=== PATIENT | female | born 1945 | race Caucasian/White ===

== ENCOUNTER 2016-05-23 03:38 | Emergency (ER) | payer OTHER ==
[~2016-05-23] VITALS: Ht 154.9 cm; Wt 110.0 kg
[~2016-05-23 03:38] MED LIST: ADVAIR HFA120 INHALA IH; AMBIEN10 MG PO; AMBIEN5 MG PO; ASPIR-LOW81 MG PO; ATARAX,VISTARIL50 MG PO; ATIVAN2 MG/ML PO; Advair HFA 115/21 IH; BENTYL20 MG PO; CEFTIN500 MG PO; CENTRUM TABLET1 EACH PO; CLONAZEPAM0.5 MG PO; COBAL-10001000 MCG/2 IM; COGENTIN0.5 MG PO; COLACE100 MG PO; COUMADIN3 MG PO; COUMADIN4 MG PO; DELTASONE10 MG PO; DESYREL100 MG PO; DESYREL12.5 MG PO; DICYCLOMINE HCL10 MG PO; DUONEB3 ML IH; EFFEXOR XR150 MG PO; ELAVIL25 MG PO; Effexor PO; Effexor XR PO; Elavil PO; FLONASE16 G1 BOTH NARES; FLONASE16 GM NS; FUROSEMIDE20 MG PO; Flonase NS; GEODON60 MG PO; GEODON80 MG PO; GLIPIZIDE PO; GLUCOPHAGE PO; GLUCOPHAGE500 MG PO; HYDROCHLOROTH12.5 M3 PO; HYZAAR 50-121 TABLET PO; IMDUR30 MG PO; INCRUSE ELLI62.5 MCG IH; ISOSORBIDE DINI30 MG PO; ISOSORBIDE MONO30 MG PO; ISOSORBIDE MONO60 MG PO; KEFLEX500 MG PO; KLONOPIN0.5 M1 PO; KLONOPIN2 MG PO; LACTINEX CHEWA1 EACH PO; LACTINEX,FLO1 PACKET PO; LANTUS (UNITS)1 UNIT SC; LANTUS 10100 UNITS/ SC; LANTUS 3 M100 UNITS/ SC; LANTUS 3 M100 UNITS1 SC; LANTUS100 UNIT/1 SQ; LASIX20 MG PO; LASIX40 MG PO; LEVAQUIN250 MG PO; LEVEMIR FL100 UNIT/1 SC; LEVEMIR100 UNIT/2 SC; LEVOFLOXACIN750 MG PO; LISINOPRIL-HCT1 EAC3 PO; LISINOPRIL20 MG PO; LISINOPRIL5 MG PO; LOSARTAN-HCTZ1 EACH PO; LUNESTA2 MG PO; LYRICA50 MG PO; LYRICA75 MG PO; Lactinex,Floranex PO; MEDROL DOSEPAK4 MG PO; METFORMIN HCL500 MG PO; METOPROLOL SUCC50 MG PO; METOPROLOL TART50 MG PO; MONOPRIL PO; MULTIVITAMIN1 EAC2 PO; MULTIVITAMINS1 EAC2 PO; NEXIUM40 MG PO; NORCO 5/3251 TABLET PO; NORVASC10 MG PO; NORVASC2.5 MG PO; NOVOLOG 10100 UNITS/ SC; NOVOLOG PE100 UNITS/ SC; NOVOLOG100 UNIT/1 SQ; NOVOLOG100 UNIT/3 SQ; NYSTATIN100000 UN1 PO; NYSTATIN15 GM TP; OMEPRAZOLE20 MG PO; PHARMACIST FAV1 EACH PO; PRAVASTATIN SOD80 MG PO; PREDNISONE10 MG PO; PRILOSEC20 MG PO; PRILOSEC40 MG PO; PRINIVIL20 MG PO; PRINZIDE 20-121 EACH PO; PROTONIX40 MG PO; PROVENTIL,2.5 MG/3 M IH; PROVENTIL2.5 MG/3 M IH; PriLOSEC PO; RANITIDINE HCL150 MG PO; SENNA8.6 MG PO; SERTRALINE HCL100 MG PO; SERTRALINE HCL50 MG PO; SPIRIVA RESPIMAT4 GM IH; SPIRIVA1 INHALATI IH; Senokot,Sennagen PO; THERAGRAN1 TABLET PO; TOPROL XL50 MG PO; TOPROL XL6.25 MG PO; TRAMADOL HCL50 MG PO; TYLENOL PM1 CAPLET PO; Toprol XL PO; Tylenol Regular Stre PO; ULTRAM50 MG PO; VENLAFAXINE HC150 M1 PO; VENTOLIN HFA18 GM IH; VITAMIN B-122000 MC1 PO; VITAMIN B12-FO1 EACH PO; VITAMIN D2000 INTUN PO; VITAMIN D2000 UNIT PO; VOLTAREN 1% GE100 GM TP; WARFARIN SODIUM2 MG PO; WARFARIN SODIUM3 MG PO; WARFARIN SODIUM4 MG PO; XANAX1 MG PO; Xanax PO; ZANTAC150 MG PO; ZESTRIL,PRINIVI20 MG PO; ZIPRASIDONE HCL60 MG PO; ZITHROMAX Z-PA250 MG PO; ZITHROMAX250 MG PO; ZOCOR20 MG PO; ZOFRAN4 MG PO; ZOLOFT50 MG PO; Zestril,Prinivil PO; [UNRECOGNIZED DRUG - REMARK] PO; predniSONE PO
[2016-05-23 04:39] LABS: MCH 28.5 PG (29.0-34.0); MCHC 34.1 G/DL (30.0-36.0); MCV 83.5 FL (83-99); MEAN PLAT.VOLUME 12.3 uM^3 (9.5-12.4); PLATELET COUNT 189 K/uL (156-360); RBC DIS.WIDTH-SD 38.9 % (39-53); RED BLOOD COUNT 4.67 M/uL (3.80-5.20); WHITE BLOOD COUNT 6.9 K/uL (4.1-10.2)
[2016-05-23 04:49] LABS: CHLORIDE 92 mEq/L (99-109); POTASSIUM 3.9 mEq/L (3.7-5.4); SODIUM 128 mEq/L (136-147)
[2016-05-23 04:52] LABS: ANION GAP 12 MEQ/L (2-14)
[2016-05-23 04:54] LABS: GFR ESTIMATE (CALCULATED) 36 mL/min/
[2016-05-23 04:55] LABS: UREA NITROGEN (BUN) 23 mg/dL (9-23)
[2016-05-23 04:58] LABS: GLUCOSE 572 mg/dL (70-99)
[2016-05-23 08:15] VITALS: BP 178/86
[2016-05-23 12:41] LABS: POINT-OF-CARE METER ID UU14100415
== END 2016-05-23 08:23 | disposition home or self-care (01) ==
LOC: EME → EDBD 03:38 → EME 03:38
PROVIDERS: Emergency Medicine
DX: E11.65 Type 2 diabetes mellitus with hyperglycemia (principal); M54.9 Dorsalgia, unspecified; I10 Essential (primary) hypertension; W19.XXXA Unspecified fall, initial encounter; Z99.81 Dependence on supplemental oxygen; Z86.73 Personal history of transient ischemic attack (TIA), and cerebral infarction without residual deficits; Z88.6 Allergy status to analgesic agent
CPT/HCPCS: 70450; 72125; 72131; 74176; 80048; 82948; 85027; 99281; 99285; J2270; J2405; J7030

== ENCOUNTER 2016-06-23 12:01 | Emergency (ER) | payer OTHER ==
[~2016-06-23] VITALS: Ht 154.9 cm; Wt 100.0 kg
[2016-06-23 12:44] LABS: HEMATOCRIT 41.8 % (36.0-46.0); MCH 28.7 PG (29.0-34.0); MCHC 32.8 G/DL (30.0-36.0); MCV 87.4 FL (83-99); MEAN PLAT.VOLUME 12.2 uM^3 (9.5-12.4); PLATELET COUNT 181 K/uL (156-360); RBC DIS.WIDTH-CV 12.6 % (11.8-14.6); RED BLOOD COUNT 4.78 M/uL (3.80-5.20); WHITE BLOOD COUNT 6.2 K/uL (4.1-10.2)
[2016-06-23 12:46] LABS: CARBON DIOXIDE (BICARBONATE) 31.3 MEQ/L (20-31)
[2016-06-23 12:53] LABS: CHLORIDE 101 mEq/L (99-109); POTASSIUM 4.3 mEq/L (3.7-5.4); SODIUM 136 mEq/L (136-147)
[2016-06-23 12:55] LABS: GLUCOSE 431 mg/dL (70-99)
[2016-06-23 12:56] LABS: ANION GAP 10 MEQ/L (2-14)
[2016-06-23 12:57] LABS: TOTAL BILIRUBIN 0.3 mg/dL (0.0-1.0)
[2016-06-23 12:58] LABS: ALKALINE PHOSPHATASE 86 IU/L (3-129)
[2016-06-23 12:59] LABS: GFR ESTIMATE (CALCULATED) 47 mL/min/
[2016-06-23 13:00] LABS: UREA NITROGEN (BUN) 17 mg/dL (9-23)
[2016-06-23 13:07] LABS: TROP-I INTERPRETATION NEGATIVE; TROPONIN-I 0.02 ng/mL (0.0-0.30)
[2016-06-23 14:11] LABS: PROTHROMBIN TIME 14.9 (9.2-11.2); PTT 29.3 (25-32)
[2016-06-23 14:16] LABS: ADD MIUA? NO; BILIRUBIN NEGATIVE; BLOOD NEGATIVE; COLOR STRAW ((YELLOW)); GLUCOSE (STRIP) >=500; KETONES 5; LEUKOCYTES NEGATIVE; NITRITE NEGATIVE; PROTEIN (STRIP) NEGATIVE; SPECIFIC GRAVITY 1.035 (1.000-1.030); UROBILINOGEN 0.2 MG/DL (0.2-1.0)
[2016-06-23 14:18] LABS: INTER. NORMALIZED RATIO 1.4
[2016-06-23 15:03] LABS: POINT-OF-CARE METER ID UU13113702
[2016-06-23 16:00] VITALS: BP 170/74
[2016-06-23 16:04] LABS: POINT-OF-CARE METER ID UU13113702
== END 2016-06-23 16:02 | disposition home or self-care (01) ==
LOC: EME → EDBD 12:01 → EME 12:01
PROVIDERS: Physician Assistant Medical
DX: E11.65 Type 2 diabetes mellitus with hyperglycemia (principal); J44.9 Chronic obstructive pulmonary disease, unspecified; I10 Essential (primary) hypertension; K21.9 Gastro-esophageal reflux disease without esophagitis; Z86.73 Personal history of transient ischemic attack (TIA), and cerebral infarction without residual deficits; Z86.718 Personal history of other venous thrombosis and embolism; Z87.891 Personal history of nicotine dependence; Z79.01 Long term (current) use of anticoagulants
CPT/HCPCS: 70450; 71010; 80053; 81003; 82010; 82803; 82948; 84484; 85027; 85610; 85730; 93005; 94640; 99281; 99285; J7030

== ENCOUNTER 2016-07-13 13:17 | Emergency (ER) | payer OTHER ==
[~2016-07-13] VITALS: Ht 154.9 cm; Wt 100.1 kg
[2016-07-13 14:02] LABS: HEMATOCRIT 40.1 % (36.0-46.0); MCH 28.4 PG (29.0-34.0); MCHC 32.4 G/DL (30.0-36.0); MCV 87.6 FL (83-99); MEAN PLAT.VOLUME 12.2 uM^3 (9.5-12.4); PLATELET COUNT 174 K/uL (156-360); RBC DIS.WIDTH-CV 12.6 % (11.8-14.6); RED BLOOD COUNT 4.58 M/uL (3.80-5.20); WHITE BLOOD COUNT 5.4 K/uL (4.1-10.2)
[2016-07-13 14:11] LABS: CHLORIDE 101 mEq/L (99-109); POTASSIUM 4.1 mEq/L (3.7-5.4); SODIUM 135 mEq/L (136-147)
[2016-07-13 14:13] LABS: GLUCOSE 316 mg/dL (70-99)
[2016-07-13 14:14] LABS: ANION GAP 12 MEQ/L (2-14); INTER. NORMALIZED RATIO 2.5
[2016-07-13 14:15] LABS: TOTAL BILIRUBIN 0.3 mg/dL (0.0-1.0)
[2016-07-13 14:16] LABS: ALKALINE PHOSPHATASE 83 IU/L (3-129); GFR ESTIMATE (CALCULATED) 52 mL/min/
[2016-07-13 14:18] LABS: PROTHROMBIN TIME 25.8 (9.2-11.2); PTT 42.5 (25-32); UREA NITROGEN (BUN) 18 mg/dL (9-23)
[2016-07-13 14:25] LABS: TROP-I INTERPRETATION NEGATIVE; TROPONIN-I < 0.01 ng/mL (0.0-0.30)
[2016-07-13 19:11] VITALS: BP 176/81
== END 2016-07-13 19:12 | disposition home or self-care (01) ==
LOC: EME 13:17
PROVIDERS: Nurse Practitioner Family
DX: F43.9 Reaction to severe stress, unspecified (principal); R07.89 Other chest pain; E11.65 Type 2 diabetes mellitus with hyperglycemia; R06.02 Shortness of breath; R05 Cough; R45.851 Suicidal ideations; F33.2 Major depressive disorder, recurrent severe without psychotic features; F60.3 Borderline personality disorder; J44.9 Chronic obstructive pulmonary disease, unspecified; Z86.718 Personal history of other venous thrombosis and embolism; Z79.01 Long term (current) use of anticoagulants; Z99.81 Dependence on supplemental oxygen; I10 Essential (primary) hypertension; Z79.4 Long term (current) use of insulin; Z87.891 Personal history of nicotine dependence
CPT/HCPCS: 71020; 80053; 84484; 85027; 85610; 85730; 90839; 93005; 99281; 99284; J7030

== ENCOUNTER 2016-08-12 22:24 | Observation (INO) | payer OTHER ==
[~2016-08-12] VITALS: Ht 154.9 cm; Wt 93.6 kg
[2016-08-12 22:42] LABS: HEMATOCRIT 42.9 % (36.0-46.0); MCH 28.2 PG (29.0-34.0); MCHC 32.6 G/DL (30.0-36.0); MCV 86.5 FL (83-99); MEAN PLAT.VOLUME 12.6 uM^3 (9.5-12.4); PLATELET COUNT 180 K/uL (156-360); RBC DIS.WIDTH-CV 13.1 % (11.8-14.6); RBC DIS.WIDTH-SD 40.6 % (39-53); RED BLOOD COUNT 4.96 M/uL (3.80-5.20); WHITE BLOOD COUNT 5.3 K/uL (4.1-10.2)
[2016-08-12 22:51] LABS: CHLORIDE 90 mEq/L (99-109); POTASSIUM 4.3 mEq/L (3.7-5.4); SODIUM 128 mEq/L (136-147)
[2016-08-12 22:54] LABS: ANION GAP 17 MEQ/L (2-14)
[2016-08-12 22:56] LABS: GFR ESTIMATE (CALCULATED) 31 mL/min/
[2016-08-12 22:57] LABS: UREA NITROGEN (BUN) 30 mg/dL (9-23)
[2016-08-12 23:03] LABS: TROP-I INTERPRETATION NEGATIVE; TROPONIN-I 0.04 ng/mL (0.0-0.30)
[2016-08-12 23:21] LABS: GLUCOSE 796 mg/dL (70-99)
[2016-08-13 03:32] LABS: CHLORIDE 96 mEq/L (99-109); SODIUM 129 mEq/L (136-147)
[2016-08-13 03:35] LABS: ANION GAP 15 MEQ/L (2-14)
[2016-08-13 03:36] LABS: GLUCOSE 384 mg/dL (70-99)
[2016-08-13 03:38] LABS: GFR ESTIMATE (CALCULATED) 52 mL/min/
[2016-08-13 03:39] LABS: UREA NITROGEN (BUN) 29 mg/dL (9-23)
[2016-08-13 08:38] LABS: INTER. NORMALIZED RATIO 1.6; PROTHROMBIN TIME 16.5 (9.2-11.2)
[2016-08-13 11:22] LABS: TROP-I INTERPRETATION NEGATIVE; TROPONIN-I 0.03 ng/mL (0.0-0.30)
[2016-08-13] MEDS ORDERED: CLONAZEPAM0.5 MG PO (11:25)
[2016-08-13 11:26] LABS: ALKALINE PHOSPHATASE 80 IU/L (3-129); DIRECT BILIRUBIN 0.1 mg/dL (0.0-0.3); HDL CHOLESTEROL 34 MG/DL (Desirable>=50); LDL CHOLESTEROL 179 mg/dL (Desirable<100); NON-HDL CHOLESTEROL 217 mg/dL (Desirable<160); TOTAL BILIRUBIN 0.4 MG/DL (0.0-1.0); TOTAL CHOLESTEROL 251 mg/dL (Desirable<200); TRIGLYCERIDES 190 MG/DL (Normal: <150)
[2016-08-13] MEDS ORDERED: WARFARIN SODIUM5 MG PO (11:27)
[2016-08-13] MEDS ORDERED: HYZAAR 50-121 TABLET PO (11:28)
[2016-08-13] MEDS ORDERED: CYMBALTA30 MG PO (11:29)
[2016-08-13 11:31] LABS: Estimated Average Glucose 427 mg/dL (70-123)
[2016-08-13] MEDS ORDERED: ISOSORBIDE MONO60 MG PO (11:32)
[2016-08-13] MEDS ORDERED: WARFARIN SODIUM3 MG PO (11:32)
[2016-08-13] MEDS ORDERED: METOPROLOL SUCC50 MG PO (11:33)
[2016-08-13] MEDS ORDERED: LATUDA20 MG PO (11:34)
[2016-08-13] MEDS ORDERED: LORAZEPAM0.5 MG PO (11:35)
[2016-08-13] MEDS ORDERED: ACETAMINOPHN-T1 EACH PO (11:37)
[2016-08-13 11:40] VITALS: BP 176/73
[2016-08-13 12:05] LABS: HEMOGLOBIN A1c (GLYCOHEMOGLOB) 16.5 % HGB (Below 5.7)
[2016-08-13 14:38] LABS: TROP-I INTERPRETATION NEGATIVE; TROPONIN-I 0.03 ng/mL (0.0-0.30)
[2016-08-13 15:49] VITALS: BP 136/65
[2016-08-13 18:15] LABS: ADD MIUA? YES; BILIRUBIN NEGATIVE; BLOOD SMALL; COLOR STRAW ((YELLOW)); GLUCOSE (STRIP) >=500; KETONES 80; LEUKOCYTES NEGATIVE; NITRITE NEGATIVE; PROTEIN (STRIP) NEGATIVE; SPECIFIC GRAVITY 1.024 (1.000-1.030); UROBILINOGEN 0.2 MG/DL (0.2-1.0)
[2016-08-13 18:19] LABS: TROP-I INTERPRETATION NEGATIVE; TROPONIN-I 0.04 ng/mL (0.0-0.30)
[2016-08-13 18:37] LABS: BACTERIA NONE SEEN /HPF; EPITHELIAL CELLS 3+ /HPF; MUCUS NONE SEEN /LPF; RED BLOOD CELLS 0-5 /HPF (0-5); UCUL ADDED? NO; WHITE BLOOD CELLS 0-5 /HPF (0-5)
[2016-08-13 20:02] VITALS: BP 136/62
[2016-08-13 22:20] LABS: TROP-I INTERPRETATION NEGATIVE; TROPONIN-I 0.03 ng/mL (0.0-0.30)
[2016-08-13 23:58] VITALS: BP 166/73
[2016-08-14 04:25] VITALS: BP 132/75
[2016-08-14 06:31] LABS: HEMATOCRIT 36.1 % (36.0-46.0); MCH 27.9 PG (29.0-34.0); MCV 84.5 FL (83-99); MEAN PLAT.VOLUME 12.8 uM^3 (9.5-12.4); PLATELET COUNT 179 K/uL (156-360); RBC DIS.WIDTH-CV 13.1 % (11.8-14.6); RBC DIS.WIDTH-SD 40.2 % (39-53); RED BLOOD COUNT 4.27 M/uL (3.80-5.20); WHITE BLOOD COUNT 6.4 K/uL (4.1-10.2)
[2016-08-14 06:35] LABS: ANION GAP 10 MEQ/L (2-14); CHLORIDE 99 MEQ/L (99-109); GFR ESTIMATE (CALCULATED) 58 mL/min/; SAMPLE HEMOLYSIS CHECK 1; SAMPLE ICTERIC CHECK 0; SAMPLE LIPEMIA CHECK 0; SODIUM 131 MEQ/L (136-147); UREA NITROGEN (BUN) 27 mg/dL (9-23)
[2016-08-14 06:42] LABS: GLUCOSE 406 mg/dL (70-99); POTASSIUM 3.6 MEQ/L (3.7-5.4)
[2016-08-14 08:03] LABS: POINT-OF-CARE METER ID UU14162513
[2016-08-14 08:12] VITALS: BP 189/79
[2016-08-14 11:54] VITALS: BP 140/63
[2016-08-14 12:33] LABS: POINT-OF-CARE METER ID UU14162513
[2016-08-14 15:03] VITALS: BP 140/71
[2016-08-14] MEDS ORDERED: TOPIRAMATE25 MG PO (15:34)
[2016-08-14] MEDS ORDERED: CLOPIDOGREL75 MG PO (15:34)
[2016-08-14] MEDS ORDERED: ATORVASTATIN CA40 MG PO (15:34)
[2016-08-14] MEDS ORDERED: LEVEMIR100 UNIT/2 SC (15:34)
[2016-08-14] MEDS ORDERED: NOVOLOG 10100 UNITS/ SC (15:34)
[2016-08-15 11:43] LABS: POINT-OF-CARE METER ID UU13113831
[2016-08-17 11:20] LABS: POINT-OF-CARE METER ID UU13113800
[2016-08-17 11:20] LABS: POINT-OF-CARE METER ID UU13113831
== END 2016-08-14 16:17 | disposition home health service (06) ==
LOC: EME → EDBD 22:24 → EME 22:24 → 5WEST 08-13 07:26 → EDOF 08-13 07:26 → 5WEST 08-13 10:32
PROVIDERS: Emergency Medicine; Hospitalist; Internal Medicine
DX: E11.65 Type 2 diabetes mellitus with hyperglycemia (principal); I65.23 Occlusion and stenosis of bilateral carotid arteries; Z91.14 Patient's other noncompliance with medication regimen; Z79.4 Long term (current) use of insulin; E86.0 Dehydration; R07.89 Other chest pain; Z86.718 Personal history of other venous thrombosis and embolism; F31.9 Bipolar disorder, unspecified; N18.9 Chronic kidney disease, unspecified; I25.10 Atherosclerotic heart disease of native coronary artery without angina pectoris; I35.0 Nonrheumatic aortic (valve) stenosis; G43.109 Migraine with aura, not intractable, without status migrainosus; I50.30 Unspecified diastolic (congestive) heart failure; I13.0 Hypertensive heart and chronic kidney disease with heart failure and stage 1 through stage 4 chronic kidney disease, or unspecified chronic kidney disease; J44.9 Chronic obstructive pulmonary disease, unspecified; E66.01 Morbid (severe) obesity due to excess calories; Z68.38 Body mass index [BMI] 38.0-38.9, adult; E87.1 Hypo-osmolality and hyponatremia; E78.5 Hyperlipidemia, unspecified
CPT/HCPCS: 70551; 71020; 80048; 80061; 80076; 81003; 82948; 83036; 84484; 85027; 85610; 93005; 93880; 99281; 99285; G0378; G8978 GP CJ; G8979 GP CI; J1100; J1815; J7030

== ENCOUNTER 2016-11-23 22:02 | Observation (INO) | payer OTHER ==
[~2016-11-23] VITALS: Ht 154.9 cm; Wt 107.9 kg
[~2016-11-23 22:02] MED LIST changes: +ACETAMINOPHN-T1 EACH PO; +ATORVASTATIN CA40 MG PO; +CLOPIDOGREL75 MG PO; +CYMBALTA30 MG PO; +LATUDA20 MG PO; +LORAZEPAM0.5 MG PO; +TOPIRAMATE25 MG PO; +WARFARIN SODIUM5 MG PO
[2016-11-23 22:40] LABS: EOSINOPHIL (%) 1.8 % (0-5); EOSINOPHIL COUNT 0.1 K/uL (0-0.3); HEMATOCRIT 35.1 % (36.0-46.0); IMMATURE GRANULOCYTE (%) 1.2 % (0.0-0.7); IMMATURE GRANULOCYTE COUNT 0.1 K/uL; INSTRUMENT ABS NEUTROPHIL CT 4.4 K/uL; LYMPHOCYTE COUNT 1.5 K/uL (1.0-2.8); MCHC 32.2 G/DL (30.0-36.0); MCV 90.2 FL (83-99); MEAN PLAT.VOLUME 11.8 uM^3 (9.5-12.4); MONOCYTE (%) 7.7 % (3-12); MONOCYTE COUNT 0.5 K/uL (0-0.8); NEUTROPHIL (%) 66.2 % (45-76); NEUTROPHIL COUNT 4.4 K/uL (1.8-6.4); PLATELET COUNT 198 K/uL (156-360); RBC DIS.WIDTH-CV 13.6 % (11.8-14.6); RBC DIS.WIDTH-SD 44.6 % (39-53); RED BLOOD COUNT 3.89 M/uL (3.80-5.20); WHITE BLOOD COUNT 6.6 K/uL (4.1-10.2)
[2016-11-23 22:55] LABS: D-DIMER ELISA < 150.00 ng/mLDDU (<230)
[2016-11-23 23:03] LABS: TROP-I INTERPRETATION NEGATIVE; TROPONIN-I < 0.01 ng/mL (0.0-0.30)
[2016-11-23 23:10] LABS: CHLORIDE 100 mEq/L (99-109); SODIUM 134 mEq/L (136-147)
[2016-11-23 23:13] LABS: ANION GAP 10 MEQ/L (2-14)
[2016-11-23 23:15] LABS: GFR ESTIMATE (CALCULATED) 36 mL/min/
[2016-11-23 23:16] LABS: UREA NITROGEN (BUN) 24 mg/dL (9-23)
[2016-11-23 23:22] LABS: GLUCOSE 412 mg/dL (70-99)
[2016-11-24 01:43] LABS: POINT-OF-CARE METER ID UU14100415
[2016-11-24 03:54] VITALS: BP 187/80
[2016-11-24 07:06] LABS: METH RESISTANT S AUREUS PCR NEGATIVE (NEGATIVE)
[2016-11-24 07:07] LABS: PROBE CHECK PASS; SPECIMEN PROCESSING CONTROL PASS
[2016-11-24 07:25] VITALS: BP 156/68
[2016-11-24 09:29] LABS: ANION GAP 7 MEQ/L (2-14); CHLORIDE 104 MEQ/L (99-109); GFR ESTIMATE (CALCULATED) 58 mL/min/; POTASSIUM 4.7 MEQ/L (3.7-5.4); SAMPLE HEMOLYSIS CHECK 0; SAMPLE ICTERIC CHECK 0; SAMPLE LIPEMIA CHECK 0; SODIUM 136 MEQ/L (136-147); UREA NITROGEN (BUN) 22 mg/dL (9-23)
[2016-11-24 09:30] LABS: GLUCOSE 204 mg/dL (70-99)
[2016-11-24 11:57] LABS: POINT-OF-CARE METER ID UU13113700
[2016-11-24 12:12] VITALS: BP 200/81
[2016-11-24] MEDS ORDERED: AMLODIPINE BES2.5 MG PO (12:39)
[2016-11-24] MEDS ORDERED: LYRICA75 MG PO (12:40)
[2016-11-24] MEDS ORDERED: CYMBALTA60 MG PO (12:42)
[2016-11-24] MEDS ORDERED: METOPROLOL SUCC50 MG PO (12:44)
[2016-11-24 14:31] VITALS: BP 155/69
[2016-11-24 16:41] VITALS: BP 190/83
== END 2016-11-24 17:45 | disposition home or self-care (01) ==
LOC: EME 22:02 → ENPENDDIS 11-24 → 5WEST 11-24 01:46 → EDOF 11-24 01:46 → ENRESERV 11-24 01:52 → 5WEST 11-24 03:36
PROVIDERS: Emergency Medicine; Hospitalist; Physician Assistant Medical
DX: E11.65 Type 2 diabetes mellitus with hyperglycemia (principal); M54.2 Cervicalgia; F41.9 Anxiety disorder, unspecified; J44.9 Chronic obstructive pulmonary disease, unspecified; R07.89 Other chest pain; Z79.4 Long term (current) use of insulin; R06.02 Shortness of breath; T38.3X6A Underdosing of insulin and oral hypoglycemic [antidiabetic] drugs, initial encounter; Z91.128 Patient's intentional underdosing of medication regimen for other reason; E07.9 Disorder of thyroid, unspecified; Z98.890 Other specified postprocedural states; I13.0 Hypertensive heart and chronic kidney disease with heart failure and stage 1 through stage 4 chronic kidney disease, or unspecified chronic kidney disease; E11.22 Type 2 diabetes mellitus with diabetic chronic kidney disease; N18.9 Chronic kidney disease, unspecified; I50.30 Unspecified diastolic (congestive) heart failure; I35.0 Nonrheumatic aortic (valve) stenosis; I69.351 Hemiplegia and hemiparesis following cerebral infarction affecting right dominant side; F60.3 Borderline personality disorder; F31.9 Bipolar disorder, unspecified; Z86.19 Personal history of other infectious and parasitic diseases; E66.01 Morbid (severe) obesity due to excess calories; Z68.41 Body mass index [BMI] 40.0-44.9, adult; Z82.49 Family history of ischemic heart disease and other diseases of the circulatory system; Z83.49 Family history of other endocrine, nutritional and metabolic diseases; Z87.891 Personal history of nicotine dependence; Z79.01 Long term (current) use of anticoagulants; Z88.6 Allergy status to analgesic agent; Z88.5 Allergy status to narcotic agent; Z88.8 Allergy status to other drugs, medicaments and biological substances
CPT/HCPCS: 70490; 71020; 80048; 82948; 83880; 84484; 85025; 85379; 87641; 93005; 94640; 94640 76; 94760; 94799; 99202; 99281; 99285; G0378; J0360; J1815; J7030

== ENCOUNTER 2017-02-14 10:21 | Inpatient (IN) | payer OTHER ==
[~2017-02-14] VITALS: Ht 154.9 cm; Wt 105.0 kg
[~2017-02-14 10:21] MED LIST changes: +AMLODIPINE BES2.5 MG PO; +CYMBALTA60 MG PO
[2017-02-14 11:15] LABS: BASOPHIL COUNT 0.1 K/uL (0-0.1); CARBON DIOXIDE (BICARBONATE) 27.4 MEQ/L (20-31); EOSINOPHIL (%) 0.7 % (0-5); EOSINOPHIL COUNT 0.1 K/uL (0-0.3); HEMATOCRIT 40.3 % (36.0-46.0); IMMATURE GRANULOCYTE (%) 0.9 % (0.0-0.7); IMMATURE GRANULOCYTE COUNT 0.1 K/uL; INSTRUMENT ABS NEUTROPHIL CT 5.1 K/uL; LYMPHOCYTE COUNT 1.2 K/uL (1.0-2.8); MCH 29.4 PG (29.0-34.0); MCHC 34.2 G/DL (30.0-36.0); MCV 85.7 FL (83-99); MEAN PLAT.VOLUME 11.9 uM^3 (9.5-12.4); MONOCYTE (%) 7.4 % (3-12); MONOCYTE COUNT 0.5 K/uL (0-0.8); NEUTROPHIL (%) 73.2 % (45-76); NEUTROPHIL COUNT 5.1 K/uL (1.8-6.4); PLATELET COUNT 220 K/uL (156-360); RBC DIS.WIDTH-CV 12.6 % (11.8-14.6); RBC DIS.WIDTH-SD 39.2 % (39-53); WHITE BLOOD COUNT 6.9 K/uL (4.1-10.2)
[2017-02-14 11:16] LABS: ADD MIUA? NO; BILIRUBIN NEGATIVE; BLOOD NEGATIVE; COLOR STRAW ((YELLOW)); GLUCOSE (STRIP) >=500; KETONES 5; LEUKOCYTES NEGATIVE; NITRITE NEGATIVE; PROTEIN (STRIP) NEGATIVE; SPECIFIC GRAVITY 1.025 (1.000-1.030); UCUL ADDED? NO; UROBILINOGEN 0.2 MG/DL (0.2-1.0)
[2017-02-14 11:17] LABS: AMPHETAMINE NEGATIVE (500 ng/mL); BARBITURATES NEGATIVE (200 ng/mL); BENZODIAZEPINES NEGATIVE (150 ng/mL); COCAINE NEGATIVE (150 ng/mL); INTERNAL CONTROLS VALID? YES; METHADONE NEGATIVE (200 ng/mL); METHAMPHETAMINE NEGATIVE (500 ng/mL); OPIATES (MORPHINE) NEGATIVE (100 ng/mL); OXYCODONE NEGATIVE (100 ng/mL); PHENCYCLIDINE NEGATIVE (25 ng/mL); PROPOXYPHENE NEGATIVE (300 ng/mL); TRICYCLIC ANTIDEPRESSANTS NEGATIVE (300 ng/mL)
[2017-02-14 11:34] LABS: GLUCOSE 712 mg/dL (70-99)
[2017-02-14] MEDS ORDERED: COUMADIN3 MG PO (11:38)
[2017-02-14] MEDS ORDERED: COUMADIN5 MG PO (11:39)
[2017-02-14] MEDS ORDERED: CYMBALTA30 MG PO (11:46)
[2017-02-14] MEDS ORDERED: TRESIBA FL200 UNIT/1 SC ×2 (11:46→11:49)
[2017-02-14 11:48] LABS: INTER. NORMALIZED RATIO 2.2; PROTHROMBIN TIME 24.8 SEC (10.2-12.9)
[2017-02-14 12:10] LABS: CHLORIDE 91 mEq/L (99-109); SODIUM 127 mEq/L (136-147)
[2017-02-14 12:14] LABS: ANION GAP 15 MEQ/L (2-14)
[2017-02-14 12:15] LABS: TOTAL BILIRUBIN 0.4 mg/dL (0.0-1.0)
[2017-02-14 12:16] LABS: ALKALINE PHOSPHATASE 85 IU/L (3-129); GFR ESTIMATE (CALCULATED) 39 mL/min/
[2017-02-14 12:18] LABS: DIRECT BILIRUBIN 0.1 mg/dL (0.0-0.3); UREA NITROGEN (BUN) 29 mg/dL (9-23)
[2017-02-14 12:20] LABS: LIPASE 36 U/L (1.0-51.0)
[2017-02-14 14:00] LABS: SAMPLE HEMOLYSIS CHECK 0; SAMPLE ICTERIC CHECK 0; SAMPLE LIPEMIA CHECK 0
[2017-02-14 14:21] LABS: POINT-OF-CARE METER ID UU13113702
[2017-02-14] MEDS ORDERED: TRESIBA FL200 UNIT/1 PO (14:25)
[2017-02-14] MEDS ORDERED: NOVOLOG 10100 UNITS/ SC (14:28)
[2017-02-14] MEDS ORDERED: POTASSIUM CHLO20 ME2 PO (14:31)
[2017-02-14] MEDS ORDERED: TRAZODONE HCL50 MG PO (14:31)
[2017-02-14] MEDS ORDERED: ATIVAN0.5 MG PO (14:32)
[2017-02-14 14:46] LABS: GLUCOSE 356 mg/dL (70-99)
[2017-02-14 15:09] LABS: Estimated Average Glucose 364 mg/dL (70-123); HEMOGLOBIN A1c (GLYCOHEMOGLOB) 14.3 % HGB (Below 5.7)
[2017-02-14 16:30] VITALS: BP 155/79
[2017-02-14] MEDS ORDERED: ADVAIR HFA120 INHALA AEROSOL (16:38)
[2017-02-14] MEDS ORDERED: INCRUSE ELLI62.5 MCG AEROSOL (16:39)
[2017-02-14] MEDS ORDERED: VENTOLIN HFA18 GM AEROSOL (16:40)
[2017-02-14] MEDS ORDERED: FLONASE16 G1 NS (16:42)
[2017-02-14 17:20] LABS: ANION GAP 10 MEQ/L (2-14); CHLORIDE 92 MEQ/L (99-109); GFR ESTIMATE (CALCULATED) 52 mL/min/; GLUCOSE 360 mg/dL (70-99); POTASSIUM 3.7 MEQ/L (3.7-5.4); SAMPLE HEMOLYSIS CHECK 0; SAMPLE ICTERIC CHECK 0; SAMPLE LIPEMIA CHECK 0; SODIUM 129 MEQ/L (136-147); UREA NITROGEN (BUN) 26 mg/dL (9-23)
[2017-02-14 19:45] VITALS: BP 144/87
[2017-02-14 19:56] LABS: THC CANNABINOIDS NEGATIVE (50 ng/mL)
[2017-02-15] VITALS (7 sets, daily range): BP systolic 112–159; BP diastolic 46–77
[2017-02-15 04:01] LABS: POINT-OF-CARE METER ID UU14174216
[2017-02-15 05:52] LABS: BASOPHIL COUNT 0.1 K/uL (0-0.1); EOSINOPHIL (%) 1.8 % (0-5); EOSINOPHIL COUNT 0.1 K/uL (0-0.3); HEMATOCRIT 37.5 % (36.0-46.0); IMMATURE GRANULOCYTE (%) 0.7 % (0.0-0.7); INSTRUMENT ABS NEUTROPHIL CT 3.7 K/uL; LYMPHOCYTE COUNT 1.6 K/uL (1.0-2.8); MCH 29.3 PG (29.0-34.0); MCHC 33.6 G/DL (30.0-36.0); MCV 87.2 FL (83-99); MEAN PLAT.VOLUME 12.3 uM^3 (9.5-12.4); MONOCYTE (%) 9.6 % (3-12); MONOCYTE COUNT 0.6 K/uL (0-0.8); NEUTROPHIL (%) 60.7 % (45-76); NEUTROPHIL COUNT 3.7 K/uL (1.8-6.4); PLATELET COUNT 198 K/uL (156-360); WHITE BLOOD COUNT 6.1 K/uL (4.1-10.2)
[2017-02-15 06:02] LABS: INTER. NORMALIZED RATIO 2.2; PROTHROMBIN TIME 25.7 SEC (10.2-12.9)
[2017-02-15 08:04] LABS: POINT-OF-CARE METER ID UU13113781; POINT-OF-CARE USER ID ENVKC36
[2017-02-15 08:32] LABS: ANION GAP 11 MEQ/L (2-14); CHLORIDE 95 MEQ/L (99-109); GFR ESTIMATE (CALCULATED) 52 mL/min/; GLUCOSE 304 mg/dL (70-99); POTASSIUM 3.7 MEQ/L (3.7-5.4); SODIUM 133 MEQ/L (136-147); UREA NITROGEN (BUN) 25 mg/dL (9-23)
[2017-02-15 12:57] LABS: POINT-OF-CARE METER ID UU13113781; POINT-OF-CARE USER ID ENVKC36
[2017-02-15 12:57] LABS: POINT-OF-CARE METER ID UU14174216
[2017-02-15 12:58] LABS: POINT-OF-CARE METER ID UU14174216
[2017-02-16 02:20] LABS: POINT-OF-CARE METER ID UU13113781
[2017-02-16 03:19] VITALS: BP 142/74
[2017-02-16 06:25] LABS: EOSINOPHIL (%) 1.7 % (0-5); EOSINOPHIL COUNT 0.1 K/uL (0-0.3); IMMATURE GRANULOCYTE (%) 0.6 % (0.0-0.7); INSTRUMENT ABS NEUTROPHIL CT 3.5 K/uL; LYMPHOCYTE COUNT 1.2 K/uL (1.0-2.8); MCH 29.4 PG (29.0-34.0); MCHC 33.2 G/DL (30.0-36.0); MCV 88.8 FL (83-99); MEAN PLAT.VOLUME 12.3 uM^3 (9.5-12.4); MONOCYTE (%) 10.7 % (3-12); MONOCYTE COUNT 0.6 K/uL (0-0.8); NEUTROPHIL COUNT 3.5 K/uL (1.8-6.4); PLATELET COUNT 206 K/uL (156-360); RBC DIS.WIDTH-SD 42.4 % (39-53); RED BLOOD COUNT 4.28 M/uL (3.80-5.20); WHITE BLOOD COUNT 5.4 K/uL (4.1-10.2)
[2017-02-16 06:45] LABS: INTER. NORMALIZED RATIO 2.8; PROTHROMBIN TIME 31.4 SEC (10.2-12.9)
[2017-02-16 06:51] LABS: ANION GAP 8 MEQ/L (2-14); CHLORIDE 96 MEQ/L (99-109); GFR ESTIMATE (CALCULATED) 47 mL/min/; GLUCOSE 325 mg/dL (70-99); POTASSIUM 3.9 MEQ/L (3.7-5.4); SAMPLE HEMOLYSIS CHECK 0; SAMPLE ICTERIC CHECK 0; SAMPLE LIPEMIA CHECK 0; SODIUM 134 MEQ/L (136-147); UREA NITROGEN (BUN) 26 mg/dL (9-23)
[2017-02-16 07:51] LABS: POINT-OF-CARE METER ID UU13113698
[2017-02-16 08:06] VITALS: BP 140/63
[2017-02-16 08:50] LABS: POINT-OF-CARE METER ID UU13113698
[2017-02-16 08:50] LABS: POINT-OF-CARE METER ID UU13113781
[2017-02-16 12:40] VITALS: BP 147/68
[2017-02-16 14:51] LABS: GLUCOSE 459 mg/dL (70-99)
[2017-02-16 15:18] VITALS: BP 103/51
[2017-02-16 15:21] LABS: POINT-OF-CARE METER ID UU13113781
[2017-02-16 16:22] LABS: POINT-OF-CARE METER ID UU13113698
[2017-02-16 16:22] LABS: POINT-OF-CARE METER ID UU13113698
[2017-02-16 16:23] LABS: POINT-OF-CARE METER ID UU13113698
[2017-02-16 19:45] VITALS: BP 112/49
[2017-02-16 21:01] LABS: POINT-OF-CARE METER ID UU13113698
[2017-02-16 23:24] VITALS: BP 131/61
[2017-02-17 03:23] LABS: POINT-OF-CARE METER ID UU13113781
[2017-02-17 03:42] VITALS: BP 120/57
[2017-02-17 05:38] LABS: INTER. NORMALIZED RATIO 3.1
[2017-02-17 07:16] VITALS: BP 127/88
[2017-02-17 07:48] VITALS: BP 140/65
[2017-02-17 07:48] LABS: POINT-OF-CARE METER ID UU13113781
[2017-02-17 10:43] LABS: POINT-OF-CARE METER ID UU13113781
[2017-02-17] MEDS ORDERED: 1ST TIER UNILE1 EAC1 MC (11:47)
[2017-02-17] MEDS ORDERED: TRESIBA FL200 UNIT/1 SC (11:47)
[2017-02-17] MEDS ORDERED: TEST N'GO1 EACH MC (11:47)
[2017-02-17 12:16] VITALS: BP 129/67
[2017-02-17 12:20] LABS: POINT-OF-CARE METER ID UU13113781
[2017-02-17] MEDS ORDERED: EASY TOUCH HYP1 EA10 MC (12:49)
== END 2017-02-17 13:35 | disposition home health service (06) | DRG 638 ==
LOC: DELPENDDIS → EME 10:21 → 4EAST 13:35 → EDOF 13:35 → ENRESERV 13:44 → 4EAST 16:16 → ENRESERV 02-15 18:15 → CANRESERV 02-15 18:28 → ENRESERV 02-15 18:28 → ENPENDDIS 02-16 → 4EAST 02-17 13:35
PROVIDERS: Emergency Medicine; Hospitalist; Internal Medicine
DX: E11.65 Type 2 diabetes mellitus with hyperglycemia (principal); J96.11 Chronic respiratory failure with hypoxia; E11.22 Type 2 diabetes mellitus with diabetic chronic kidney disease; E87.1 Hypo-osmolality and hyponatremia; Z91.19 Patient's noncompliance with other medical treatment and regimen; N18.2 Chronic kidney disease, stage 2 (mild); I50.32 Chronic diastolic (congestive) heart failure; I13.0 Hypertensive heart and chronic kidney disease with heart failure and stage 1 through stage 4 chronic kidney disease, or unspecified chronic kidney disease; I69.354 Hemiplegia and hemiparesis following cerebral infarction affecting left non-dominant side; E86.0 Dehydration; Z86.718 Personal history of other venous thrombosis and embolism; Z79.01 Long term (current) use of anticoagulants; K21.9 Gastro-esophageal reflux disease without esophagitis; F41.9 Anxiety disorder, unspecified; J44.9 Chronic obstructive pulmonary disease, unspecified; Z87.891 Personal history of nicotine dependence; I35.0 Nonrheumatic aortic (valve) stenosis; I69.351 Hemiplegia and hemiparesis following cerebral infarction affecting right dominant side; Z79.4 Long term (current) use of insulin; Z99.81 Dependence on supplemental oxygen
CPT/HCPCS: 80048; 80048 91; 80076; 81003; 82010; 82803; 82947; 82947 91; 82948; 83036; 83690; 84100; 84999; 85025; 85027; 85610; 94640; 94640 76; 94799; 99202; 99281; 99285; J1815; J2270; J2405; J7030

== ENCOUNTER 2017-02-25 21:44 | Emergency (ER) | payer OTHER ==
[~2017-02-25] VITALS: Ht 154.9 cm; Wt 117.2 kg
[~2017-02-25 21:44] MED LIST changes: +1ST TIER UNILE1 EAC1 MC; +ADVAIR HFA120 INHALA AEROSOL; +ATIVAN0.5 MG PO; +COUMADIN5 MG PO; +EASY TOUCH HYP1 EA10 MC; +FLONASE16 G1 NS; +INCRUSE ELLI62.5 MCG AEROSOL; +POTASSIUM CHLO20 ME2 PO; +TEST N'GO1 EACH MC; +TRAZODONE HCL50 MG PO; +TRESIBA FL200 UNIT/1 PO; +TRESIBA FL200 UNIT/1 SC; +VENTOLIN HFA18 GM AEROSOL
[2017-02-25 22:37] LABS: HEMATOCRIT 36.3 % (36.0-46.0); MCH 29.9 PG (29.0-34.0); MCHC 33.9 G/DL (30.0-36.0); MCV 88.3 FL (83-99); MEAN PLAT.VOLUME 12.2 uM^3 (9.5-12.4); PLATELET COUNT 192 K/uL (156-360); RBC DIS.WIDTH-CV 12.6 % (11.8-14.6); RBC DIS.WIDTH-SD 40.8 % (39-53); RED BLOOD COUNT 4.11 M/uL (3.80-5.20); WHITE BLOOD COUNT 6.2 K/uL (4.1-10.2)
[2017-02-25 22:43] LABS: INTER. NORMALIZED RATIO 3.3; PROTHROMBIN TIME 37.5 SEC (10.2-12.9)
[2017-02-25 22:44] LABS: CHLORIDE 93 mEq/L (99-109); POTASSIUM 4.4 mEq/L (3.7-5.4); SODIUM 132 mEq/L (136-147)
[2017-02-25 22:48] LABS: ANION GAP 12 MEQ/L (2-14)
[2017-02-25 22:49] LABS: GLUCOSE 490 mg/dL (70-99); TOTAL BILIRUBIN 0.2 mg/dL (0.0-1.0)
[2017-02-25 22:50] LABS: ALKALINE PHOSPHATASE 79 IU/L (3-129); GFR ESTIMATE (CALCULATED) 43 mL/min/
[2017-02-25 22:51] LABS: UREA NITROGEN (BUN) 19 mg/dL (9-23)
[2017-02-26 00:16] LABS: POINT-OF-CARE METER ID UU13113747
[2017-02-26 00:26] VITALS: BP 164/84
[2017-02-26 22:53] LABS: POINT-OF-CARE METER ID UU13113747
== END 2017-02-26 00:28 | disposition home or self-care (01) ==
LOC: EME → EDBD 21:44 → EME 02-26 00:28
PROVIDERS: Emergency Medicine
DX: E11.65 Type 2 diabetes mellitus with hyperglycemia (principal); G62.9 Polyneuropathy, unspecified; G89.29 Other chronic pain; J44.9 Chronic obstructive pulmonary disease, unspecified; K21.9 Gastro-esophageal reflux disease without esophagitis; E11.22 Type 2 diabetes mellitus with diabetic chronic kidney disease; I12.9 Hypertensive chronic kidney disease with stage 1 through stage 4 chronic kidney disease, or unspecified chronic kidney disease; N18.9 Chronic kidney disease, unspecified; I89.0 Lymphedema, not elsewhere classified; F31.9 Bipolar disorder, unspecified; F32.9 Major depressive disorder, single episode, unspecified; Z86.718 Personal history of other venous thrombosis and embolism; Z85.9 Personal history of malignant neoplasm, unspecified; Z87.442 Personal history of urinary calculi; Z79.4 Long term (current) use of insulin; Z86.73 Personal history of transient ischemic attack (TIA), and cerebral infarction without residual deficits; Z87.891 Personal history of nicotine dependence; Z79.01 Long term (current) use of anticoagulants; Z88.5 Allergy status to narcotic agent; Z88.8 Allergy status to other drugs, medicaments and biological substances
CPT/HCPCS: 80053; 82948; 85027; 85610; 99281; 99285; J2270; J2405; J7030

== ENCOUNTER 2017-03-10 19:13 | Inpatient (IN) | payer OTHER ==
[~2017-03-10] VITALS: Ht 154.9 cm; Wt 108.6 kg
[2017-03-10 20:09] LABS: EOSINOPHIL (%) 2.3 % (0-5); EOSINOPHIL COUNT 0.2 K/uL (0-0.3); HEMATOCRIT 38.8 % (36.0-46.0); IMMATURE GRANULOCYTE (%) 0.6 % (0.0-0.7); INSTRUMENT ABS NEUTROPHIL CT 4.3 K/uL; LYMPHOCYTE COUNT 1.6 K/uL (1.0-2.8); MCH 28.7 PG (29.0-34.0); MCV 89.8 FL (83-99); MEAN PLAT.VOLUME 12.5 uM^3 (9.5-12.4); MONOCYTE (%) 6.9 % (3-12); MONOCYTE COUNT 0.5 K/uL (0-0.8); NEUTROPHIL (%) 65.1 % (45-76); NEUTROPHIL COUNT 4.3 K/uL (1.8-6.4); PLATELET COUNT 227 K/uL (156-360); RBC DIS.WIDTH-CV 12.8 % (11.8-14.6); RBC DIS.WIDTH-SD 42.5 % (39-53); RED BLOOD COUNT 4.32 M/uL (3.80-5.20); WHITE BLOOD COUNT 6.6 K/uL (4.1-10.2)
[2017-03-10 20:20] LABS: CHLORIDE 93 mEq/L (99-109); POTASSIUM 4.3 mEq/L (3.7-5.4); SODIUM 132 mEq/L (136-147)
[2017-03-10 20:22] LABS: GLUCOSE 381 mg/dL (70-99)
[2017-03-10 20:23] LABS: ANION GAP 9 MEQ/L (2-14)
[2017-03-10 20:26] LABS: GFR ESTIMATE (CALCULATED) 31 mL/min/
[2017-03-10 20:27] LABS: UREA NITROGEN (BUN) 35 mg/dL (9-23)
[2017-03-10 22:15] LABS: PTT 41.8 SEC (25-37)
[2017-03-10 22:39] LABS: ADD MIUA? NO; BILIRUBIN NEGATIVE; BLOOD NEGATIVE; COLOR STRAW ((YELLOW)); GLUCOSE (STRIP) >=500; KETONES NEGATIVE; LEUKOCYTES NEGATIVE; NITRITE NEGATIVE; PROTEIN (STRIP) NEGATIVE; SPECIFIC GRAVITY 1.021 (1.000-1.030); UCUL ADDED? NO; UROBILINOGEN 0.2 MG/DL (0.2-1.0)
[2017-03-10 22:41] LABS: PROTHROMBIN TIME 23.1 SEC (10.2-12.9)
[2017-03-11 03:57] LABS: CHLORIDE 98 mEq/L (99-109); SODIUM 135 mEq/L (136-147)
[2017-03-11 03:59] LABS: GLUCOSE 237 mg/dL (70-99)
[2017-03-11 04:01] LABS: ANION GAP 9 MEQ/L (2-14); TOTAL BILIRUBIN 0.4 mg/dL (0.0-1.0)
[2017-03-11 04:03] LABS: ALKALINE PHOSPHATASE 79 IU/L (3-129); GFR ESTIMATE (CALCULATED) 43 mL/min/
[2017-03-11 04:04] LABS: UREA NITROGEN (BUN) 31 mg/dL (9-23)
[2017-03-11 06:11] LABS: MCHC 32.1 G/DL (30.0-36.0); MCV 90.5 FL (83-99); MEAN PLAT.VOLUME 12.6 uM^3 (9.5-12.4); PLATELET COUNT 212 K/uL (156-360); RBC DIS.WIDTH-CV 13.1 % (11.8-14.6); RBC DIS.WIDTH-SD 42.9 % (39-53); WHITE BLOOD COUNT 6.1 K/uL (4.1-10.2)
[2017-03-11 06:24] LABS: PROTHROMBIN TIME 22.6 SEC (10.2-12.9)
[2017-03-11 06:35] LABS: ANION GAP 7 MEQ/L (2-14); CHLORIDE 100 MEQ/L (99-109); GFR ESTIMATE (CALCULATED) 58 mL/min/; GLUCOSE 236 mg/dL (70-99); POTASSIUM 4.3 MEQ/L (3.7-5.4); SAMPLE HEMOLYSIS CHECK 0; SAMPLE ICTERIC CHECK 0; SAMPLE LIPEMIA CHECK 0; SODIUM 139 MEQ/L (136-147); UREA NITROGEN (BUN) 29 mg/dL (9-23)
[2017-03-11 06:36] VITALS: BP 125/59
[2017-03-11 10:59] VITALS: BP 135/64
[2017-03-11 11:17] LABS: POINT-OF-CARE METER ID UU13113774
[2017-03-11 14:49] VITALS: BP 146/63
[2017-03-11] MEDS ORDERED: LASIX20 MG PO (15:45)
[2017-03-11] MEDS ORDERED: KEFLEX500 MG PO (15:48)
[2017-03-11] MEDS ORDERED: LIPITOR40 MG PO (15:49)
[2017-03-11 16:59] LABS: POINT-OF-CARE METER ID UU13113774
[2017-03-11 19:45] VITALS: BP 122/58
[2017-03-11 21:39] LABS: POINT-OF-CARE METER ID UU13113774
[2017-03-12 03:54] VITALS: BP 127/61
[2017-03-12 05:59] LABS: BASOPHIL COUNT 0.1 K/uL (0-0.1); EOSINOPHIL (%) 2.7 % (0-5); EOSINOPHIL COUNT 0.2 K/uL (0-0.3); HEMATOCRIT 36.8 % (36.0-46.0); IMMATURE GRANULOCYTE (%) 0.5 % (0.0-0.7); INSTRUMENT ABS NEUTROPHIL CT 3.4 K/uL; LYMPHOCYTE COUNT 1.5 K/uL (1.0-2.8); MCH 28.6 PG (29.0-34.0); MCV 92.5 FL (83-99); MEAN PLAT.VOLUME 12.6 uM^3 (9.5-12.4); MONOCYTE (%) 8.9 % (3-12); MONOCYTE COUNT 0.5 K/uL (0-0.8); NEUTROPHIL (%) 60.7 % (45-76); NEUTROPHIL COUNT 3.4 K/uL (1.8-6.4); PLATELET COUNT 197 K/uL (156-360); RBC DIS.WIDTH-SD 44.2 % (39-53); RED BLOOD COUNT 3.98 M/uL (3.80-5.20); WHITE BLOOD COUNT 5.6 K/uL (4.1-10.2)
[2017-03-12 06:01] LABS: INTER. NORMALIZED RATIO 1.7; PROTHROMBIN TIME 19.4 SEC (10.2-12.9)
[2017-03-12 06:09] LABS: POINT-OF-CARE METER ID UU13113774
[2017-03-12 06:28] LABS: ANION GAP 6 MEQ/L (2-14); CHLORIDE 102 MEQ/L (99-109); GFR ESTIMATE (CALCULATED) > 59 mL/min/; GLUCOSE 195 mg/dL (70-99); POTASSIUM 4.4 MEQ/L (3.7-5.4); SAMPLE HEMOLYSIS CHECK 0; SAMPLE ICTERIC CHECK 0; SAMPLE LIPEMIA CHECK 0; SODIUM 139 MEQ/L (136-147); UREA NITROGEN (BUN) 27 mg/dL (9-23)
[2017-03-12 06:34] VITALS: BP 105/57
[2017-03-12 11:13] VITALS: BP 132/60
[2017-03-12 11:29] LABS: POINT-OF-CARE METER ID UU13113774
[2017-03-12 15:00] VITALS: BP 153/66
[2017-03-12 16:34] LABS: POINT-OF-CARE METER ID UU13113725
[2017-03-12 19:51] VITALS: BP 156/69
[2017-03-12 21:52] LABS: POINT-OF-CARE METER ID UU13113725
[2017-03-12 23:31] VITALS: BP 120/58
[2017-03-13 04:19] VITALS: BP 120/58
[2017-03-13 05:45] LABS: INTER. NORMALIZED RATIO 1.7; PROTHROMBIN TIME 19.2 SEC (10.2-12.9)
[2017-03-13 06:12] LABS: POINT-OF-CARE METER ID UU13113725
[2017-03-13 07:47] VITALS: BP 148/65
[2017-03-13] MEDS ORDERED: CYMBALTA60 MG PO (08:59)
[2017-03-13] MEDS ORDERED: CYMBALTA30 MG PO ×2 (09:00→09:01)
[2017-03-13 11:37] LABS: POINT-OF-CARE METER ID UU13113774
[2017-03-13] MEDS ORDERED: LOVENOX100 MG/1 M SC (11:54)
[2017-03-13] MEDS ORDERED: ENDOCET 5-3251 EACH PO (11:54)
[2017-03-13] MEDS ORDERED: COUMADIN5 MG PO (11:54)
[2017-03-13 12:17] VITALS: BP 133/61
== END 2017-03-13 15:23 | disposition home or self-care (01) | DRG 300 ==
LOC: RME 19:13 → EME 19:13 → 5EAST 03-11 02:58 → EDOF 03-11 02:58 → ENRESERV 03-11 03:01 → 5EAST 03-11 04:52 → ENPENDDIS 03-13 → 5EAST 03-13 15:23
PROVIDERS: Hospitalist; Internal Medicine; Physician Assistant
DX: I82.421 Acute embolism and thrombosis of right iliac vein (principal); N17.9 Acute kidney failure, unspecified; E66.01 Morbid (severe) obesity due to excess calories; E11.22 Type 2 diabetes mellitus with diabetic chronic kidney disease; E11.65 Type 2 diabetes mellitus with hyperglycemia; E11.40 Type 2 diabetes mellitus with diabetic neuropathy, unspecified; E87.1 Hypo-osmolality and hyponatremia; F31.9 Bipolar disorder, unspecified; I13.0 Hypertensive heart and chronic kidney disease with heart failure and stage 1 through stage 4 chronic kidney disease, or unspecified chronic kidney disease; I50.32 Chronic diastolic (congestive) heart failure; N18.3 Chronic kidney disease, stage 3 (moderate); I69.354 Hemiplegia and hemiparesis following cerebral infarction affecting left non-dominant side; I35.0 Nonrheumatic aortic (valve) stenosis; K21.9 Gastro-esophageal reflux disease without esophagitis; T45.515A Adverse effect of anticoagulants, initial encounter; Z79.01 Long term (current) use of anticoagulants; D68.32 Hemorrhagic disorder due to extrinsic circulating anticoagulants; J44.9 Chronic obstructive pulmonary disease, unspecified; Z87.891 Personal history of nicotine dependence; Z79.4 Long term (current) use of insulin
CPT/HCPCS: 73564; 73590; 80048; 80048 91; 80053; 81003; 82948; 85025; 85027; 85610; 85730; 93971; 94640; 94640 76; 94760; 94799; 99202; 99281; 99285; J1650; J1815; J2270; J3010; J7030

== ENCOUNTER 2017-03-19 19:57 | Observation (INO) | payer OTHER ==
[~2017-03-19] VITALS: Ht 154.9 cm; Wt 106.4 kg
[~2017-03-19 19:57] MED LIST changes: +ENDOCET 5-3251 EACH PO; +LIPITOR40 MG PO; +LOVENOX100 MG/1 M SC
[2017-03-19 20:31] LABS: BASOPHIL COUNT 0.1 K/uL (0-0.1); EOSINOPHIL COUNT 0.1 K/uL (0-0.3); HEMATOCRIT 38.9 % (36.0-46.0); IMMATURE GRANULOCYTE (%) 0.4 % (0.0-0.7); INSTRUMENT ABS NEUTROPHIL CT 4.7 K/uL; LYMPHOCYTE COUNT 1.6 K/uL (1.0-2.8); MCH 29.2 PG (29.0-34.0); MCHC 32.9 G/DL (30.0-36.0); MCV 88.6 FL (83-99); MEAN PLAT.VOLUME 12.1 uM^3 (9.5-12.4); MONOCYTE (%) 8.9 % (3-12); MONOCYTE COUNT 0.6 K/uL (0-0.8); NEUTROPHIL (%) 65.5 % (45-76); NEUTROPHIL COUNT 4.7 K/uL (1.8-6.4); PLATELET COUNT 226 K/uL (156-360); RBC DIS.WIDTH-CV 13.1 % (11.8-14.6); RBC DIS.WIDTH-SD 42.5 % (39-53); RED BLOOD COUNT 4.39 M/uL (3.80-5.20); WHITE BLOOD COUNT 7.1 K/uL (4.1-10.2)
[2017-03-19 20:36] LABS: INTER. NORMALIZED RATIO 3.3
[2017-03-19 20:39] LABS: PTT 53.2 SEC (25-37)
[2017-03-19 20:42] LABS: CHLORIDE 96 mEq/L (99-109); POTASSIUM 4.5 mEq/L (3.7-5.4); SODIUM 134 mEq/L (136-147)
[2017-03-19 20:45] LABS: ANION GAP 12 MEQ/L (2-14)
[2017-03-19 20:47] LABS: GFR ESTIMATE (CALCULATED) 39 mL/min/
[2017-03-19 20:48] LABS: UREA NITROGEN (BUN) 21 mg/dL (9-23)
[2017-03-19 20:56] LABS: TROP-I INTERPRETATION NEGATIVE; TROPONIN-I 0.02 ng/mL (0.0-0.30)
[2017-03-19 21:02] LABS: GLUCOSE 410 mg/dL (70-99)
[2017-03-20] VITALS (7 sets, daily range): BP systolic 122–174; BP diastolic 59–109
[2017-03-20 02:15] LABS: POINT-OF-CARE METER ID UU14162513
[2017-03-20 02:37] LABS: TROP-I INTERPRETATION NEGATIVE; TROPONIN-I 0.02 ng/mL (0.0-0.30)
[2017-03-20 08:00] LABS: INTER. NORMALIZED RATIO 2.8; PROTHROMBIN TIME 32.6 SEC (10.2-12.9)
[2017-03-20 08:04] LABS: POINT-OF-CARE METER ID UU13113700; POINT-OF-CARE USER ID PUTHJD81
[2017-03-20 08:21] LABS: TROP-I INTERPRETATION NEGATIVE; TROPONIN-I < 0.01 ng/mL (0.0-0.30)
[2017-03-20 13:22] LABS: POINT-OF-CARE METER ID UU13113700
[2017-03-20 17:23] LABS: POINT-OF-CARE METER ID UU14162513
[2017-03-20 21:36] LABS: POINT-OF-CARE METER ID UU14162513
[2017-03-21 03:06] VITALS: BP 142/63
[2017-03-21 05:35] LABS: INTER. NORMALIZED RATIO 2.5; PROTHROMBIN TIME 28.3 SEC (10.2-12.9)
[2017-03-21 08:01] LABS: POINT-OF-CARE METER ID UU14162513
[2017-03-21 11:43] LABS: POINT-OF-CARE METER ID UU14162513
[2017-03-21 12:03] VITALS: BP 134/63
[2017-03-21] MEDS ORDERED: ENDOCET 5-3251 EACH PO (12:43)
== END 2017-03-21 13:53 | disposition home or self-care (01) ==
LOC: EME 19:57 → EDOF 03-20 00:14 → 5WEST 03-20 00:14 → ENRESERV 03-20 00:14 → EDOF 03-20 00:14 → ENRESERV 03-20 00:30 → 5WEST 03-20 01:43 → ENPENDDIS 03-21 → 5WEST 03-21 13:53
PROVIDERS: Emergency Medicine; Family Medicine
DX: R07.89 Other chest pain (principal); M79.604 Pain in right leg; M79.605 Pain in left leg; I82.491 Acute embolism and thrombosis of other specified deep vein of right lower extremity; I12.9 Hypertensive chronic kidney disease with stage 1 through stage 4 chronic kidney disease, or unspecified chronic kidney disease; E11.22 Type 2 diabetes mellitus with diabetic chronic kidney disease; N18.9 Chronic kidney disease, unspecified; J44.9 Chronic obstructive pulmonary disease, unspecified; I69.354 Hemiplegia and hemiparesis following cerebral infarction affecting left non-dominant side; F32.9 Major depressive disorder, single episode, unspecified; I35.0 Nonrheumatic aortic (valve) stenosis; M79.89 Other specified soft tissue disorders; E66.01 Morbid (severe) obesity due to excess calories; Z68.41 Body mass index [BMI] 40.0-44.9, adult; Z86.718 Personal history of other venous thrombosis and embolism; Z90.49 Acquired absence of other specified parts of digestive tract; Z90.710 Acquired absence of both cervix and uterus; Z82.49 Family history of ischemic heart disease and other diseases of the circulatory system; Z83.3 Family history of diabetes mellitus; Z79.01 Long term (current) use of anticoagulants; Z99.81 Dependence on supplemental oxygen; Z79.4 Long term (current) use of insulin; Z88.5 Allergy status to narcotic agent; Z88.6 Allergy status to analgesic agent; Z88.8 Allergy status to other drugs, medicaments and biological substances; Z87.891 Personal history of nicotine dependence
CPT/HCPCS: 71010; 71275; 80048; 82948; 83880; 84484; 85025; 85610; 85730; 93005; 94640 76; 94760; 94799; 99281; 99285; G0378; G8978 GP CJ; G8979 GP CI; G8980 CJ; G8987 GO CL; G8988 GO CK; G8989 GO CL; J0360; J1815; J2270; J3010; J7030

== ENCOUNTER 2017-04-04 16:30 | Emergency (ER) | payer OTHER ==
[~2017-04-04] VITALS: Ht 154.9 cm; Wt 108.0 kg
[2017-04-04 17:25] LABS: HEMATOCRIT 36.3 % (36.0-46.0); MCH 28.7 PG (29.0-34.0); MCHC 32.8 G/DL (30.0-36.0); MCV 87.7 FL (83-99); PLATELET COUNT 227 K/uL (156-360); RBC DIS.WIDTH-CV 13.2 % (11.8-14.6); RBC DIS.WIDTH-SD 42.3 % (39-53); RED BLOOD COUNT 4.14 M/uL (3.80-5.20); WHITE BLOOD COUNT 6.8 K/uL (4.1-10.2)
[2017-04-04 17:27] LABS: CARBON DIOXIDE (BICARBONATE) 29.9 MEQ/L (20-31)
[2017-04-04 17:35] LABS: CHLORIDE 97 mEq/L (99-109); POTASSIUM 5.4 mEq/L (3.7-5.4); SODIUM 131 mEq/L (136-147)
[2017-04-04 17:38] LABS: ANION GAP 10 MEQ/L (2-14)
[2017-04-04 17:41] LABS: GFR ESTIMATE (CALCULATED) 43 mL/min/
[2017-04-04 17:42] LABS: UREA NITROGEN (BUN) 20 mg/dL (9-23)
[2017-04-04 17:44] LABS: GLUCOSE 461 mg/dL (70-99)
[2017-04-04 18:19] LABS: ADD MIUA? NO; BILIRUBIN NEGATIVE; BLOOD NEGATIVE; COLOR YELLOW ((YELLOW)); GLUCOSE (STRIP) >=500; KETONES NEGATIVE; LEUKOCYTES NEGATIVE; NITRITE NEGATIVE; PROTEIN (STRIP) NEGATIVE; SPECIFIC GRAVITY 1.026 (1.000-1.030); UCUL ADDED? NO; UROBILINOGEN 0.2 MG/DL (0.2-1.0)
[2017-04-04 21:19] VITALS: BP 168/79
[2017-04-05 07:40] LABS: POINT-OF-CARE METER ID UU14100415; POINT-OF-CARE USER ID NUTJNM
== END 2017-04-04 21:20 | disposition home or self-care (01) ==
LOC: EME 16:30
PROVIDERS: Emergency Medicine
DX: E11.65 Type 2 diabetes mellitus with hyperglycemia (principal); M25.561 Pain in right knee; E11.22 Type 2 diabetes mellitus with diabetic chronic kidney disease; I12.9 Hypertensive chronic kidney disease with stage 1 through stage 4 chronic kidney disease, or unspecified chronic kidney disease; N18.9 Chronic kidney disease, unspecified; Z79.4 Long term (current) use of insulin; J44.9 Chronic obstructive pulmonary disease, unspecified; E66.01 Morbid (severe) obesity due to excess calories; Z68.41 Body mass index [BMI] 40.0-44.9, adult; Z86.718 Personal history of other venous thrombosis and embolism; Z87.891 Personal history of nicotine dependence
CPT/HCPCS: 73564; 80048; 81003; 82010; 82803; 82948; 85027; 99281; 99284; J7030

== ENCOUNTER 2017-05-04 16:02 | Observation (INO) | payer OTHER ==
[~2017-05-04] VITALS: Ht 154.9 cm; Wt 103.1 kg
[~2017-05-04 16:02] MED LIST changes: +LYRICA100 MG PO; -TRAZODONE HCL50 MG PO
[2017-05-04 16:51] LABS: HEMATOCRIT 38.1 % (36.0-46.0); HEMOGLOBIN 12.6 G/DL (11.9-15.5); MCH 28.9 PG (29.0-34.0); MCHC 33.1 G/DL (30.0-36.0); MCV 87.4 FL (83-99); PLATELET COUNT 207 K/uL (156-360); RBC DIS.WIDTH-SD 41.2 % (39-53); RED BLOOD COUNT 4.36 M/uL (3.80-5.20); WHITE BLOOD COUNT 7.6 K/uL (4.1-10.2)
[2017-05-04 16:55] LABS: CARBON DIOXIDE (BICARBONATE) 29.8 MEQ/L (20-31)
[2017-05-04 17:07] LABS: ALBUMIN 3.9 g/dL (3.2-4.8); CHLORIDE 101 mEq/L (99-109); POTASSIUM 4.3 mEq/L (3.7-5.4); SODIUM 133 mEq/L (136-147)
[2017-05-04 17:09] LABS: GLUCOSE 362 mg/dL (70-99)
[2017-05-04 17:11] LABS: TOTAL BILIRUBIN 0.2 mg/dL (0.0-1.0)
[2017-05-04 17:13] LABS: ALKALINE PHOSPHATASE 82 IU/L (3-129); CREATININE 1.1 mg/dL (0.6-1.3); GFR ESTIMATE (CALCULATED) 52 mL/min/
[2017-05-04 17:14] LABS: UREA NITROGEN (BUN) 24 mg/dL (9-23)
[2017-05-04 17:15] LABS: AST (GOT) 25 IU/L (2-34); DIRECT BILIRUBIN 0.1 mg/dL (0.0-0.3)
[2017-05-04 17:16] LABS: ALT (GPT) 37 IU/L (3-49); LIPASE 68 U/L (1.0-51.0)
[2017-05-04 17:17] LABS: TROP-I INTERPRETATION NEGATIVE; TROPONIN-I < 0.01 ng/mL (0.0-0.30)
[2017-05-04 21:06] LABS: D-DIMER ELISA < 150.00 ng/mLDDU (<230)
[2017-05-04 23:12] LABS: TROP-I INTERPRETATION NEGATIVE; TROPONIN-I < 0.01 ng/mL (0.0-0.30)
[2017-05-04] MEDS ORDERED: COUMADIN5 MG PO (23:18)
[2017-05-04] MEDS ORDERED: POTASSIUM CHLO20 ME1 PO (23:20)
[2017-05-04] MEDS ORDERED: TRAZODONE HCL50 MG PO (23:21)
[2017-05-05 03:20] VITALS: BP 176/82
[2017-05-05 05:49] LABS: INTER. NORMALIZED RATIO 1.1
[2017-05-05 08:35] VITALS: BP 167/70
[2017-05-05] MEDS ORDERED: LYRICA100 MG PO (11:50)
[2017-05-05 11:55] VITALS: BP 123/59
== END 2017-05-05 15:03 | disposition home or self-care (01) ==
LOC: EME 16:02 → EDOF 05-05 01:11 → ENRESERV 05-05 01:15 → 5WEST 05-05 02:54
PROVIDERS: Hospitalist; Physician Assistant; Physician Assistant Medical
DX: G89.29 Other chronic pain (principal); E11.40 Type 2 diabetes mellitus with diabetic neuropathy, unspecified; E11.65 Type 2 diabetes mellitus with hyperglycemia; E11.22 Type 2 diabetes mellitus with diabetic chronic kidney disease; M25.561 Pain in right knee; M25.562 Pain in left knee; M54.9 Dorsalgia, unspecified; R07.9 Chest pain, unspecified; E04.9 Nontoxic goiter, unspecified; J44.9 Chronic obstructive pulmonary disease, unspecified; I25.10 Atherosclerotic heart disease of native coronary artery without angina pectoris; I13.0 Hypertensive heart and chronic kidney disease with heart failure and stage 1 through stage 4 chronic kidney disease, or unspecified chronic kidney disease; I50.32 Chronic diastolic (congestive) heart failure; N18.3 Chronic kidney disease, stage 3 (moderate); I69.351 Hemiplegia and hemiparesis following cerebral infarction affecting right dominant side; F31.9 Bipolar disorder, unspecified; F60.3 Borderline personality disorder; F41.0 Panic disorder [episodic paroxysmal anxiety]; Z86.718 Personal history of other venous thrombosis and embolism; I35.0 Nonrheumatic aortic (valve) stenosis; Z79.01 Long term (current) use of anticoagulants; E66.01 Morbid (severe) obesity due to excess calories; Z68.41 Body mass index [BMI] 40.0-44.9, adult; Z90.49 Acquired absence of other specified parts of digestive tract; Z90.710 Acquired absence of both cervix and uterus; Z82.49 Family history of ischemic heart disease and other diseases of the circulatory system; Z87.891 Personal history of nicotine dependence; Z79.4 Long term (current) use of insulin; Z88.6 Allergy status to analgesic agent; Z88.5 Allergy status to narcotic agent; Z88.8 Allergy status to other drugs, medicaments and biological substances
CPT/HCPCS: 71046; 80048; 80076; 81003; 82010; 82803; 82948; 83690; 84484; 85027; 85379; 85610; 87641; 93005; 94640; 99202; 99281; 99285; G0378; J1885; J2270; J7030; Q0177

== ENCOUNTER 2017-05-24 20:57 | Emergency (ER) | payer OTHER ==
[~2017-05-24] VITALS: Ht 154.9 cm; Wt 111.7 kg
[~2017-05-24 20:57] MED LIST changes: +POTASSIUM CHLO20 ME1 PO; +TRAZODONE HCL50 MG PO
[2017-05-24 21:22] LABS: BASOPHIL (%) 0.5 % (0-1); EOSINOPHIL (%) 1.9 % (0-5); EOSINOPHIL COUNT 0.2 K/uL (0-0.3); HEMATOCRIT 38.8 % (36.0-46.0); HEMOGLOBIN 13.1 G/DL (11.9-15.5); IMMATURE GRANULOCYTE (%) 0.4 % (0.0-0.7); LYMPHOCYTE (%) 21.4 % (15-42); LYMPHOCYTE COUNT 1.7 K/uL (1.0-2.8); MCH 29.4 PG (29.0-34.0); MCHC 33.8 G/DL (30.0-36.0); MCV 87.2 FL (83-99); MONOCYTE (%) 10.1 % (3-12); MONOCYTE COUNT 0.8 K/uL (0-0.8); NEUTROPHIL (%) 65.7 % (45-76); NEUTROPHIL COUNT 5.2 K/uL (1.8-6.4); PLATELET COUNT 196 K/uL (156-360); RBC DIS.WIDTH-CV 13.1 % (11.8-14.6); RBC DIS.WIDTH-SD 41.5 % (39-53); RED BLOOD COUNT 4.45 M/uL (3.80-5.20)
[2017-05-24 21:28] LABS: INTER. NORMALIZED RATIO 1.4
[2017-05-24 21:30] LABS: ALBUMIN 3.8 g/dL (3.2-4.8); CHLORIDE 95 mEq/L (99-109); POTASSIUM 4.2 mEq/L (3.7-5.4); SODIUM 133 mEq/L (136-147)
[2017-05-24 21:31] LABS: MAGNESIUM 1.6 mg/dL (1.3-2.7)
[2017-05-24 21:33] LABS: TOTAL PROTEIN 6.9 g/dL (6.4-8.3)
[2017-05-24 21:35] LABS: TOTAL BILIRUBIN 0.2 mg/dL (0.0-1.0)
[2017-05-24 21:36] LABS: ALKALINE PHOSPHATASE 94 IU/L (3-129); CREATININE 1.2 mg/dL (0.6-1.3); GFR ESTIMATE (CALCULATED) 47 mL/min/
[2017-05-24 21:37] LABS: UREA NITROGEN (BUN) 27 mg/dL (9-23)
[2017-05-24 21:38] LABS: AST (GOT) 22 IU/L (2-34)
[2017-05-24 21:39] LABS: ALT (GPT) 31 IU/L (3-49)
[2017-05-24 21:42] LABS: GLUCOSE 490 mg/dL (70-99)
[2017-05-24 21:45] LABS: TROP-I INTERPRETATION NEGATIVE; TROPONIN-I 0.01 ng/mL (0.0-0.30)
[2017-05-24 22:13] LABS: APPEARANCE SL.HAZY ((CLEAR)); BILIRUBIN NEGATIVE; BLOOD NEGATIVE; COLOR YELLOW ((YELLOW)); GLUCOSE (STRIP) >=500; KETONES NEGATIVE; LEUKOCYTES SMALL; NITRITE NEGATIVE; PROTEIN (STRIP) NEGATIVE; SPECIFIC GRAVITY 1.031 (1.000-1.030); UROBILINOGEN 0.2 MG/DL (0.2-1.0)
[2017-05-24 22:29] LABS: BACTERIA 2+ /HPF; EPITHELIAL CELLS 2+ /HPF; MUCUS TRACE /LPF; RED BLOOD CELLS NONE SEEN /HPF (0-5); UCUL ADDED? YES
[2017-05-25] MEDS ORDERED: KEFLEX500 MG PO (03:01)
[2017-05-25 03:46] VITALS: BP 144/72
== END 2017-05-25 03:47 | disposition home or self-care (01) ==
LOC: EME → EDBD 20:57 → EME 20:57
PROVIDERS: Emergency Medicine
DX: E11.65 Type 2 diabetes mellitus with hyperglycemia (principal); N39.0 Urinary tract infection, site not specified; Z79.4 Long term (current) use of insulin; I12.9 Hypertensive chronic kidney disease with stage 1 through stage 4 chronic kidney disease, or unspecified chronic kidney disease; E11.22 Type 2 diabetes mellitus with diabetic chronic kidney disease; N18.9 Chronic kidney disease, unspecified; J44.9 Chronic obstructive pulmonary disease, unspecified; Z99.81 Dependence on supplemental oxygen; F32.9 Major depressive disorder, single episode, unspecified; Z86.73 Personal history of transient ischemic attack (TIA), and cerebral infarction without residual deficits; Z86.718 Personal history of other venous thrombosis and embolism; F41.9 Anxiety disorder, unspecified; K21.9 Gastro-esophageal reflux disease without esophagitis; Z87.442 Personal history of urinary calculi; Z88.5 Allergy status to narcotic agent; Z88.8 Allergy status to other drugs, medicaments and biological substances; Z87.891 Personal history of nicotine dependence
CPT/HCPCS: 71045; 80053; 81003; 82010; 82948; 83735; 83880; 84484; 85025; 85610; 85730; 87086 GA; 93005; 99281; 99284; J7030

== ENCOUNTER 2017-06-01 21:25 | Emergency (ER) | payer OTHER ==
[~2017-06-01] VITALS: Ht 154.9 cm; Wt 107.7 kg
[2017-06-01 21:32] VITALS: BP 166/82
[2017-06-01 21:55] LABS: HEMATOCRIT 38.3 % (36.0-46.0); HEMOGLOBIN 12.5 G/DL (11.9-15.5); MCH 28.9 PG (29.0-34.0); MCHC 32.6 G/DL (30.0-36.0); MCV 88.5 FL (83-99); PLATELET COUNT 185 K/uL (156-360); RBC DIS.WIDTH-CV 13.2 % (11.8-14.6); RBC DIS.WIDTH-SD 43.3 % (39-53); RED BLOOD COUNT 4.33 M/uL (3.80-5.20); WHITE BLOOD COUNT 6.3 K/uL (4.1-10.2)
[2017-06-01 22:07] LABS: CHLORIDE 95 mEq/L (99-109); POTASSIUM 4.2 mEq/L (3.7-5.4); SODIUM 131 mEq/L (136-147)
[2017-06-01 22:08] LABS: GLUCOSE 398 mg/dL (70-99)
[2017-06-01 22:11] LABS: INTER. NORMALIZED RATIO 5.5
[2017-06-01 22:12] LABS: CREATININE 1.2 mg/dL (0.6-1.3); GFR ESTIMATE (CALCULATED) 47 mL/min/
[2017-06-01 22:13] LABS: UREA NITROGEN (BUN) 21 mg/dL (9-23)
== END 2017-06-02 02:30 | disposition home or self-care (01) ==
LOC: EME 21:25
DX: S70.12XA Contusion of left thigh, initial encounter (principal); X58.XXXA Exposure to other specified factors, initial encounter; Z86.718 Personal history of other venous thrombosis and embolism; Z79.01 Long term (current) use of anticoagulants; J44.9 Chronic obstructive pulmonary disease, unspecified; I12.9 Hypertensive chronic kidney disease with stage 1 through stage 4 chronic kidney disease, or unspecified chronic kidney disease; E11.22 Type 2 diabetes mellitus with diabetic chronic kidney disease; N18.9 Chronic kidney disease, unspecified; Z79.4 Long term (current) use of insulin; Z86.73 Personal history of transient ischemic attack (TIA), and cerebral infarction without residual deficits; Z99.81 Dependence on supplemental oxygen; Z87.891 Personal history of nicotine dependence
CPT/HCPCS: 80048; 85027; 85610; 93971; 99281; 99283

== ENCOUNTER 2017-07-07 23:21 | Emergency (ER) | payer OTHER ==
[~2017-07-07] VITALS: Ht 154.9 cm; Wt 110.4 kg
[2017-07-08 00:51] LABS: HEMATOCRIT 39.4 % (36.0-46.0); HEMOGLOBIN 12.4 G/DL (11.9-15.5); MCH 28.8 PG (29.0-34.0); MCHC 31.5 G/DL (30.0-36.0); MCV 91.4 FL (83-99); PLATELET COUNT 188 K/uL (156-360); RBC DIS.WIDTH-CV 13.4 % (11.8-14.6); RBC DIS.WIDTH-SD 45.3 % (39-53); RED BLOOD COUNT 4.31 M/uL (3.80-5.20); WHITE BLOOD COUNT 5.7 K/uL (4.1-10.2)
[2017-07-08 01:02] LABS: ALBUMIN 3.8 g/dL (3.2-4.8); CHLORIDE 88 mEq/L (99-109)
[2017-07-08 01:03] LABS: SODIUM 126 mEq/L (136-147)
[2017-07-08 01:05] LABS: TOTAL PROTEIN 6.2 g/dL (6.4-8.3)
[2017-07-08 01:07] LABS: TOTAL BILIRUBIN 0.2 mg/dL (0.0-1.0)
[2017-07-08 01:08] LABS: ALKALINE PHOSPHATASE 123 IU/L (3-129); CREATININE 1.6 mg/dL (0.6-1.3); GFR ESTIMATE (CALCULATED) 34 mL/min/
[2017-07-08 01:10] LABS: AST (GOT) 26 IU/L (2-34); UREA NITROGEN (BUN) 32 mg/dL (9-23)
[2017-07-08 01:11] LABS: ALT (GPT) 43 IU/L (3-49)
[2017-07-08 01:16] LABS: GLUCOSE 751 mg/dL (70-99)
[2017-07-08 02:17] LABS: APPEARANCE CLEAR ((CLEAR)); BILIRUBIN NEGATIVE; BLOOD NEGATIVE; COLOR STRAW ((YELLOW)); GLUCOSE (STRIP) >=500; KETONES NEGATIVE; LEUKOCYTES TRACE; NITRITE NEGATIVE; PROTEIN (STRIP) NEGATIVE; SPECIFIC GRAVITY 1.022 (1.000-1.030); UROBILINOGEN 0.2 MG/DL (0.2-1.0)
[2017-07-08 02:31] LABS: BACTERIA RARE /HPF; EPITHELIAL CELLS 1+ /HPF; MUCUS NONE SEEN /LPF; RED BLOOD CELLS 0-5 /HPF (0-5); UCUL ADDED? YES
[2017-07-08 04:45] VITALS: BP 142/79
== END 2017-07-08 05:09 | disposition home or self-care (01) ==
LOC: EME 23:21
PROVIDERS: Emergency Medicine
DX: E11.65 Type 2 diabetes mellitus with hyperglycemia (principal); M79.604 Pain in right leg; M79.605 Pain in left leg; G89.29 Other chronic pain; R05 Cough; E87.1 Hypo-osmolality and hyponatremia; J44.9 Chronic obstructive pulmonary disease, unspecified; E11.22 Type 2 diabetes mellitus with diabetic chronic kidney disease; I12.9 Hypertensive chronic kidney disease with stage 1 through stage 4 chronic kidney disease, or unspecified chronic kidney disease; N18.9 Chronic kidney disease, unspecified; Z86.718 Personal history of other venous thrombosis and embolism; Z86.73 Personal history of transient ischemic attack (TIA), and cerebral infarction without residual deficits; Z79.01 Long term (current) use of anticoagulants; Z79.4 Long term (current) use of insulin; Z99.81 Dependence on supplemental oxygen; Z87.891 Personal history of nicotine dependence
CPT/HCPCS: 80053; 81003; 82948; 85027; 87086; 99281; 99285; J7030

== ENCOUNTER 2017-08-09 16:21 | Emergency (ER) | payer OTHER ==
[~2017-08-09] VITALS: Ht 154.9 cm; Wt 101.2 kg
[2017-08-09 19:37] LABS: BASOPHIL (%) 0.7 % (0-1); EOSINOPHIL (%) 1.7 % (0-5); EOSINOPHIL COUNT 0.1 K/uL (0-0.3); HEMATOCRIT 41.7 % (36.0-46.0); IMMATURE GRANULOCYTE (%) 0.2 % (0.0-0.7); LYMPHOCYTE COUNT 1.8 K/uL (1.0-2.8); MCH 29.2 PG (29.0-34.0); MCHC 33.6 G/DL (30.0-36.0); MCV 86.9 FL (83-99); MONOCYTE (%) 8.6 % (3-12); MONOCYTE COUNT 0.5 K/uL (0-0.8); NEUTROPHIL (%) 59.8 % (45-76); NEUTROPHIL COUNT 3.6 K/uL (1.8-6.4); PLATELET COUNT 184 K/uL (156-360); RBC DIS.WIDTH-CV 13.2 % (11.8-14.6); RBC DIS.WIDTH-SD 41.8 % (39-53); WHITE BLOOD COUNT 6.1 K/uL (4.1-10.2)
[2017-08-09 19:45] LABS: APPEARANCE CLEAR ((CLEAR)); BILIRUBIN NEGATIVE; BLOOD NEGATIVE; COLOR YELLOW ((YELLOW)); GLUCOSE (STRIP) >=500; KETONES 5; LEUKOCYTES NEGATIVE; NITRITE NEGATIVE; PROTEIN (STRIP) 30; SPECIFIC GRAVITY 1.021 (1.000-1.030); UCUL ADDED? NO; UROBILINOGEN 0.2 MG/DL (0.2-1.0)
[2017-08-09 19:52] LABS: ALBUMIN 4.1 g/dL (3.2-4.8); CHLORIDE 95 mEq/L (99-109); POTASSIUM 3.7 mEq/L (3.7-5.4); SODIUM 137 mEq/L (136-147)
[2017-08-09 19:54] LABS: GLUCOSE 286 mg/dL (70-99); TOTAL PROTEIN 7.1 g/dL (6.4-8.3)
[2017-08-09 19:56] LABS: TOTAL BILIRUBIN 0.3 mg/dL (0.0-1.0)
[2017-08-09 19:58] LABS: ALKALINE PHOSPHATASE 100 IU/L (3-129); CREATININE 1.4 mg/dL (0.6-1.3); GFR ESTIMATE (CALCULATED) 39 mL/min/
[2017-08-09 19:59] LABS: UREA NITROGEN (BUN) 31 mg/dL (9-23)
[2017-08-09 20:00] LABS: AST (GOT) 36 IU/L (2-34)
[2017-08-09 20:01] LABS: ALT (GPT) 44 IU/L (3-49)
[2017-08-09 20:04] LABS: PTT 32.2 SEC (25-37)
[2017-08-09 20:27] LABS: INTER. NORMALIZED RATIO 1.3
[2017-08-09 21:50] LABS: D-DIMER ELISA < 150.00 ng/mLDDU (<230)
[2017-08-09 22:24] LABS: TROP-I INTERPRETATION NEGATIVE; TROPONIN-I 0.02 ng/mL (0.0-0.30)
[2017-08-09 23:00] VITALS: BP 196/83
[2017-08-09 23:16] LABS: TROP-I INTERPRETATION NEGATIVE; TROPONIN-I 0.03 ng/mL (0.0-0.30)
[2017-08-09] MEDS ORDERED: NORCO 5/3251 TABLET PO (23:29)
== END 2017-08-10 00:34 | disposition home or self-care (01) ==
LOC: EME 16:21
PROVIDERS: Emergency Medicine
DX: R51 Headache (principal); I12.9 Hypertensive chronic kidney disease with stage 1 through stage 4 chronic kidney disease, or unspecified chronic kidney disease; N18.9 Chronic kidney disease, unspecified; E11.40 Type 2 diabetes mellitus with diabetic neuropathy, unspecified; J44.9 Chronic obstructive pulmonary disease, unspecified; K21.9 Gastro-esophageal reflux disease without esophagitis; M19.90 Unspecified osteoarthritis, unspecified site; G43.909 Migraine, unspecified, not intractable, without status migrainosus; F41.9 Anxiety disorder, unspecified; F32.9 Major depressive disorder, single episode, unspecified; F31.9 Bipolar disorder, unspecified; Z99.81 Dependence on supplemental oxygen; Z87.891 Personal history of nicotine dependence; Z79.01 Long term (current) use of anticoagulants; Z79.4 Long term (current) use of insulin; Z85.9 Personal history of malignant neoplasm, unspecified; Z86.73 Personal history of transient ischemic attack (TIA), and cerebral infarction without residual deficits; Z86.718 Personal history of other venous thrombosis and embolism; Z87.442 Personal history of urinary calculi; Z90.49 Acquired absence of other specified parts of digestive tract; Z88.5 Allergy status to narcotic agent; Z88.6 Allergy status to analgesic agent; Z88.8 Allergy status to other drugs, medicaments and biological substances
CPT/HCPCS: 70450; 80053; 81003; 82948; 84484; 85025; 85379; 85610; 85730; 93005; 93971; 99281; 99284

== ENCOUNTER 2017-11-18 19:15 | Emergency (ER) | payer OTHER ==
[~2017-11-18] VITALS: Ht 154.9 cm; Wt 103.3 kg
[2017-11-18 19:46] LABS: HEMOGLOBIN 12.9 G/DL (11.9-15.5); MCH 28.2 PG (29.0-34.0); MCHC 33.1 G/DL (30.0-36.0); MCV 85.3 FL (83-99); PLATELET COUNT 263 K/uL (156-360); RBC DIS.WIDTH-CV 13.6 % (11.8-14.6); RBC DIS.WIDTH-SD 41.6 % (39-53); RED BLOOD COUNT 4.57 M/uL (3.80-5.20); WHITE BLOOD COUNT 7.2 K/uL (4.1-10.2)
[2017-11-18 20:04] LABS: ALBUMIN 3.5 G/DL (3.2-4.8); CHLORIDE 94 MEQ/L (99-109); POTASSIUM 4.2 MEQ/L (3.7-5.4); SODIUM 133 MEQ/L (136-147); TOTAL BILIRUBIN 0.4 MG/DL (0.0-1.0)
[2017-11-18 20:10] LABS: ALKALINE PHOSPHATASE 101 IU/L (3-129); ALT (GPT) 39 IU/L (3-49); AST (GOT) 50 IU/L (2-34); CREATININE 1.1 MG/DL (0.6-1.3); GFR ESTIMATE (CALCULATED) 52 mL/min/; GLUCOSE 330 mg/dL (70-99); TOTAL PROTEIN 6.6 G/DL (6.4-8.3); UREA NITROGEN (BUN) 16 mg/dL (9-23)
[2017-11-18 20:43] LABS: APPEARANCE SL.HAZY ((CLEAR)); BILIRUBIN NEGATIVE; BLOOD NEGATIVE; COLOR YELLOW ((YELLOW)); GLUCOSE (STRIP) 50; KETONES NEGATIVE; LEUKOCYTES SMALL; NITRITE NEGATIVE; PROTEIN (STRIP) 30; SPECIFIC GRAVITY 1.015 (1.000-1.030); UROBILINOGEN 0.2 MG/DL (0.2-1.0)
[2017-11-18 20:46] LABS: BACTERIA 2+ /HPF; EPITHELIAL CELLS 2+ /HPF; MUCUS TRACE /LPF; RED BLOOD CELLS 0-5 /HPF (0-5); UCUL ADDED? YES; WHITE BLOOD CELLS 15-20 /HPF (0-5)
[2017-11-18] MEDS ORDERED: KEFLEX500 MG PO (21:26)
[2017-11-18 21:41] VITALS: BP 149/94
== END 2017-11-18 21:55 | disposition home or self-care (01) ==
LOC: EME → EDBD 19:15 → EME 19:15
DX: N39.0 Urinary tract infection, site not specified (principal); J44.9 Chronic obstructive pulmonary disease, unspecified; I12.9 Hypertensive chronic kidney disease with stage 1 through stage 4 chronic kidney disease, or unspecified chronic kidney disease; E11.22 Type 2 diabetes mellitus with diabetic chronic kidney disease; N18.9 Chronic kidney disease, unspecified; Z99.81 Dependence on supplemental oxygen; Z87.11 Personal history of peptic ulcer disease; F32.9 Major depressive disorder, single episode, unspecified; K21.9 Gastro-esophageal reflux disease without esophagitis; F41.1 Generalized anxiety disorder; Z86.73 Personal history of transient ischemic attack (TIA), and cerebral infarction without residual deficits; Z86.718 Personal history of other venous thrombosis and embolism; Z79.4 Long term (current) use of insulin; Z88.6 Allergy status to analgesic agent; Z88.5 Allergy status to narcotic agent; Z87.891 Personal history of nicotine dependence
CPT/HCPCS: 80053; 81003; 85027; 87077; 87086; 87186; 99281; 99284

== ENCOUNTER 2017-11-21 10:44 | Inpatient (IN) | payer OTHER ==
[~2017-11-21] VITALS: Ht 154.9 cm; Wt 107.0 kg
[2017-11-21 11:25] LABS: BASOPHIL (%) 0.7 % (0-1); EOSINOPHIL (%) 1.3 % (0-5); EOSINOPHIL COUNT 0.1 K/uL (0-0.3); HEMATOCRIT 39.6 % (36.0-46.0); HEMOGLOBIN 13.1 G/DL (11.9-15.5); IMMATURE GRANULOCYTE (%) 0.7 % (0.0-0.7); LYMPHOCYTE (%) 14.5 % (15-42); LYMPHOCYTE COUNT 0.9 K/uL (1.0-2.8); MCH 28.8 PG (29.0-34.0); MCHC 33.1 G/DL (30.0-36.0); MONOCYTE COUNT 0.6 K/uL (0-0.8); NEUTROPHIL (%) 73.8 % (45-76); NEUTROPHIL COUNT 4.5 K/uL (1.8-6.4); PLATELET COUNT 202 K/uL (156-360); RBC DIS.WIDTH-CV 13.8 % (11.8-14.6); RBC DIS.WIDTH-SD 43.9 % (39-53); RED BLOOD COUNT 4.55 M/uL (3.80-5.20); WHITE BLOOD COUNT 6.1 K/uL (4.1-10.2)
[2017-11-21 11:32] LABS: CARBON DIOXIDE (BICARBONATE) 34.2 MEQ/L (20-31)
[2017-11-21 11:35] LABS: ALBUMIN 3.6 g/dL (3.2-4.8)
[2017-11-21 11:36] LABS: CHLORIDE 95 mEq/L (99-109); POTASSIUM 4.8 mEq/L (3.7-5.4); SODIUM 134 mEq/L (136-147)
[2017-11-21 11:38] LABS: GLUCOSE 385 mg/dL (70-99); TOTAL PROTEIN 6.7 g/dL (6.4-8.3)
[2017-11-21 11:40] LABS: TOTAL BILIRUBIN 0.4 mg/dL (0.0-1.0)
[2017-11-21 11:41] LABS: ALKALINE PHOSPHATASE 105 IU/L (3-129)
[2017-11-21 11:42] LABS: CREATININE 1.3 mg/dL (0.6-1.3); GFR ESTIMATE (CALCULATED) 43 mL/min/
[2017-11-21 11:43] LABS: AST (GOT) 84 IU/L (2-34); UREA NITROGEN (BUN) 18 mg/dL (9-23)
[2017-11-21 11:45] LABS: ALT (GPT) 56 IU/L (3-49); LIPASE 32 U/L (1.0-51.0)
[2017-11-21 11:47] LABS: TROP-I INTERPRETATION NEGATIVE; TROPONIN-I 0.02 ng/mL (0.0-0.30)
[2017-11-21 12:57] LABS: APPEARANCE CLEAR ((CLEAR)); BILIRUBIN NEGATIVE; BLOOD NEGATIVE; GLUCOSE (STRIP) >=500; KETONES NEGATIVE; LEUKOCYTES NEGATIVE; NITRITE NEGATIVE; PROTEIN (STRIP) NEGATIVE; SPECIFIC GRAVITY 1.014 (1.000-1.030); UCUL ADDED? NO; UROBILINOGEN 0.2 MG/DL (0.2-1.0)
[2017-11-21 12:58] LABS: COLOR PALE YELLOW ((YELLOW))
[2017-11-21 13:54] LABS: DEVICE RA; SITE RR; TOTAL RESP RATE 16 resp/min; pH 7.34 (7.35-7.45)
[2017-11-21 13:55] LABS: BASE EXCESS 3.1 mEq/L (-3 to +3); BICARBONATE 30.2 mEq/L (22-26); CARBOXY HGB 1.9 % (0-5); METHEMOGLOBIN 0.8 % (0-1.5); PCO2 56 mm Hg (35-45); PO2 52 mm Hg (80-100)
[2017-11-21 16:22] VITALS: BP 135/74
[2017-11-21 20:26] VITALS: BP 141/67
[2017-11-22 00:33] LABS: COMMENTS - BLOOD GASES A+C+; DEVICE NC; O2 FLOW 2 L/MIN; SITE RR
[2017-11-22 00:34] LABS: BASE EXCESS 0.1 mEq/L (-3 to +3); CARBOXY HGB 1.1 % (0-5); METHEMOGLOBIN 0.9 % (0-1.5); O2 SATURATION (CALCULATED) 97.2 % (95-99); PCO2 46 mm Hg (35-45); PO2 93 mm Hg (80-100); pH 7.36 (7.35-7.45)
[2017-11-22 00:37] LABS: BASOPHIL (%) 0.2 % (0-1); EOSINOPHIL (%) 0 % (0-5); HEMATOCRIT 35.8 % (36.0-46.0); HEMOGLOBIN 11.7 G/DL (11.9-15.5); IMMATURE GRANULOCYTE (%) 0.4 % (0.0-0.7); LYMPHOCYTE (%) 6.6 % (15-42); LYMPHOCYTE COUNT 0.3 K/uL (1.0-2.8); MCH 28.4 PG (29.0-34.0); MCHC 32.7 G/DL (30.0-36.0); MCV 86.9 FL (83-99); MONOCYTE (%) 0.6 % (3-12); NEUTROPHIL (%) 92.2 % (45-76); NEUTROPHIL COUNT 4.5 K/uL (1.8-6.4); PLATELET COUNT 170 K/uL (156-360); RBC DIS.WIDTH-CV 13.5 % (11.8-14.6); RBC DIS.WIDTH-SD 42.3 % (39-53); RED BLOOD COUNT 4.12 M/uL (3.80-5.20); WHITE BLOOD COUNT 4.9 K/uL (4.1-10.2)
[2017-11-22 00:46] LABS: ALBUMIN 3.3 g/dL (3.2-4.8)
[2017-11-22 00:47] LABS: CHLORIDE 91 mEq/L (99-109); POTASSIUM 4.9 mEq/L (3.7-5.4); SODIUM 126 mEq/L (136-147)
[2017-11-22 00:48] VITALS: BP 139/67
[2017-11-22 00:49] LABS: TOTAL PROTEIN 6.2 g/dL (6.4-8.3)
[2017-11-22 00:50] LABS: GLUCOSE 613 mg/dL (70-99)
[2017-11-22 00:52] LABS: ALKALINE PHOSPHATASE 92 IU/L (3-129); TOTAL BILIRUBIN 0.3 mg/dL (0.0-1.0)
[2017-11-22 00:53] LABS: CREATININE 1.5 mg/dL (0.6-1.3); GFR ESTIMATE (CALCULATED) 36 mL/min/
[2017-11-22 00:54] LABS: AST (GOT) 62 IU/L (2-34); UREA NITROGEN (BUN) 27 mg/dL (9-23)
[2017-11-22 00:56] LABS: ALT (GPT) 55 IU/L (3-49)
[2017-11-22 01:33] LABS: INTER. NORMALIZED RATIO 3.5
[2017-11-22 04:20] VITALS: BP 166/72
[2017-11-22 07:42] VITALS: BP 161/64
[2017-11-22] MEDS ORDERED: TRESIBA FL100 UNIT/1 SC (09:19)
[2017-11-22] MEDS ORDERED: VICTOZA 2-0.6 MG/0.1 SC (09:20)
[2017-11-22] MEDS ORDERED: BUSPAR10 MG PO (09:21)
[2017-11-22 11:36] VITALS: BP 138/77
[2017-11-22 15:12] VITALS: BP 134/61
[2017-11-22 19:43] VITALS: BP 135/63
[2017-11-23] VITALS: BP 130/63
[2017-11-23 04:18] VITALS: BP 143/67
[2017-11-23 05:30] LABS: INTER. NORMALIZED RATIO 2.5
[2017-11-23 05:59] LABS: CHLORIDE 101 MEQ/L (99-109); UREA NITROGEN (BUN) 22 mg/dL (9-23)
[2017-11-23 06:03] LABS: GFR ESTIMATE (CALCULATED) 58 mL/min/; GLUCOSE 156 mg/dL (70-99); POTASSIUM 3.5 MEQ/L (3.7-5.4); SODIUM 137 MEQ/L (136-147)
[2017-11-23 07:10] VITALS: BP 135/76
[2017-11-23 10:58] VITALS: BP 136/64
[2017-11-23] MEDS ORDERED: PREDNISONE20 MG PO (13:53)
== END 2017-11-23 16:03 | disposition home or self-care (01) | DRG 191 ==
LOC: EME 10:44 → EDOF 15:17 → 4SOUTH 15:17 → ENRESERV 15:18 → 4SOUTH 16:12
PROVIDERS: Emergency Medicine; Hospitalist; Physician Assistant Medical; Student in an Organized Health Care Education/Training Program
DX: J44.1 Chronic obstructive pulmonary disease with (acute) exacerbation (principal); N17.9 Acute kidney failure, unspecified; E87.2 Acidosis; E87.1 Hypo-osmolality and hyponatremia; E11.65 Type 2 diabetes mellitus with hyperglycemia; T38.0X5A Adverse effect of glucocorticoids and synthetic analogues, initial encounter; Z99.81 Dependence on supplemental oxygen; I10 Essential (primary) hypertension; M19.90 Unspecified osteoarthritis, unspecified site; F41.9 Anxiety disorder, unspecified; F32.9 Major depressive disorder, single episode, unspecified; Z66 Do not resuscitate; Z87.891 Personal history of nicotine dependence; Z79.4 Long term (current) use of insulin; Z79.01 Long term (current) use of anticoagulants; Z86.718 Personal history of other venous thrombosis and embolism; Z86.73 Personal history of transient ischemic attack (TIA), and cerebral infarction without residual deficits; Z87.442 Personal history of urinary calculi
CPT/HCPCS: 36600; 70450; 71046; 74177; 80048; 80053; 81003; 82010; 82803; 82948; 83605; 83690; 84484; 85025; 85025 91; 85610; 87641; 93005; 94640; 94799; 99281; 99285; G0378; G8978 GP CI; G8979 GP CH; G8987 GO CI; G8988 GO CH; J1650; J1815; J2930; J7030; J7512

== ENCOUNTER 2017-12-03 12:37 | Emergency (ER) | payer OTHER ==
[~2017-12-03] VITALS: Ht 154.9 cm; Wt 104.3 kg
[~2017-12-03 12:37] MED LIST changes: +BUSPAR10 MG PO; +PREDNISONE20 MG PO; +TRESIBA FL100 UNIT/1 SC; +VICTOZA 2-0.6 MG/0.1 SC
[2017-12-03] MEDS ORDERED: TRAMADOL HCL50 MG PO (14:53)
[2017-12-03 15:18] VITALS: BP 135/93
== END 2017-12-03 15:19 | disposition home or self-care (01) ==
LOC: EME 12:37
DX: M54.5 Low back pain (principal); G89.29 Other chronic pain; E11.9 Type 2 diabetes mellitus without complications; I10 Essential (primary) hypertension; K21.9 Gastro-esophageal reflux disease without esophagitis; J44.9 Chronic obstructive pulmonary disease, unspecified; I25.10 Atherosclerotic heart disease of native coronary artery without angina pectoris; F32.9 Major depressive disorder, single episode, unspecified; F41.9 Anxiety disorder, unspecified; M19.90 Unspecified osteoarthritis, unspecified site; Z86.73 Personal history of transient ischemic attack (TIA), and cerebral infarction without residual deficits; Z86.718 Personal history of other venous thrombosis and embolism; Z87.442 Personal history of urinary calculi; Z87.891 Personal history of nicotine dependence; Z90.49 Acquired absence of other specified parts of digestive tract; Z79.4 Long term (current) use of insulin; Z79.01 Long term (current) use of anticoagulants; Z88.5 Allergy status to narcotic agent; Z88.6 Allergy status to analgesic agent
CPT/HCPCS: 81003; 99281; 99284